=== PATIENT | female | born 1955 | race Caucasian/White ===

== ENCOUNTER 2017-06-02 10:13 | Emergency (ER) | payer OTHER ==
[~2017-06-02] VITALS: Ht 170.2 cm; Wt 120.2 kg
[~2017-06-02 10:13] MED LIST: ALBU0.0912 IH; APID SUBQ; BACL10TA4 PO; CETI-55 PO; LEVEMIR SUBQ; METO100T98 PO; OMEP20TC10 PO; PRAV40TA4 PO
[2017-06-02 10:20] VITALS: BP 184/83
--- NOTE | 2017-06-02 10:29 | NUR ---
PT AMBULATED TO BED 11
--- NOTE | 2017-06-02 10:31 | NUR ---
C/O LEFT NECK/ SHOULDER PAIN S/P MECHANICAL FALL TODAY AT HOME--- HIT HEAD AGAINST DOOR--NO HEMATOMA PALPATED OR LACERATIONS NOTED SUPERFICIAL ABRASION TO RIGHT KNEE DIZZINESS; DENIES KO, AMBULATORY WITH STEADY GAIT, FULL CLEAR SPEECH, NO EMESIS . DENIES V/D; SKIN IS PINK/WARM/DRY; AAOX4 WITH EVEN AND STEADY GAIT; LUNGS CLEAR BL; HR EVEN AND REGULAR; PT DENIES ANY FEVER, CP, SOB, OR COUGH AT THIS TIME; PATIENT STATES PAIN OF 10/10 AT THIS TIME; VSS; PATIENT POSITIONED FOR COMFORT; HOB ELEVATED; BEDRAILS UP X2; BED DOWN. ER MD MADE AWARE OF PT STATUS.
[2017-06-02] MEDS ORDERED: ONDANSETRON 4 MG ODT PO ONE (10:35)
[2017-06-02] MEDS ORDERED: HYDROcodone/APAP 5/325 MG 1 TAB TAB PO ONE (10:35)
--- NOTE | 2017-06-02 10:43 | NUR ---
PT TAKEN TO XRAY
--- NOTE | 2017-06-02 11:17 | NUR ---
PT RETURNED FROM RADIOLOGY
[2017-06-02] MEDS ORDERED: METHOCARBAMOL 500 MG TAB PO ONE (11:50)
[2017-06-02 13:20] VITALS: BP 142/75
--- NOTE | 2017-06-02 13:20 | NUR ---
Patient discharged with v/s stable. Written and verbal after care instructions given and explained. Patient alert, oriented and verbalized understanding of instructions. Ambulatory with steady gait. All questions addressed prior to discharge. ID band removed. Patient advised to follow up with PMD. Rx of ROBAXIN given. Patient educated on indication of medication including possible reaction and side effects. Opportunity to ask questions provided and answered.
== END 2017-06-02 13:20 | disposition home or self-care (01) ==
LOC: MED 10:13
DX: S80.01XA Contusion of right knee, initial encounter (principal); S40.012A Contusion of left shoulder, initial encounter; S09.90XA Unspecified injury of head, initial encounter; M62.838 Other muscle spasm; E11.9 Type 2 diabetes mellitus without complications; I10 Essential (primary) hypertension; Z79.4 Long term (current) use of insulin; Z79.899 Other long term (current) drug therapy; Z88.8 Allergy status to other drugs, medicaments and biological substances; Z90.710 Acquired absence of both cervix and uterus; Z90.49 Acquired absence of other specified parts of digestive tract; Z86.73 Personal history of transient ischemic attack (TIA), and cerebral infarction without residual deficits; W01.0XXA Fall on same level from slipping, tripping and stumbling without subsequent striking against object, initial encounter; Y93.01 Activity, walking, marching and hiking; Y92.89 Other specified places as the place of occurrence of the external cause; Y99.8 Other external cause status
CPT/HCPCS: 70450; 71045; 72125; 73030; 73562; 82948; 99284; S0119

== ENCOUNTER 2017-06-12 23:45 | Emergency (ER) | payer OTHER ==
[~2017-06-12] VITALS: Ht 170.2 cm; Wt 113.4 kg
[2017-06-12 23:54] VITALS: BP 157/94
--- NOTE | 2017-06-13 00:16 | NUR ---
TO LOBBY , AMB, A/W BED, AND XRAY , N[place]LE[facility] NOTED
--- NOTE | 2017-06-13 00:24 | NUR ---
PATIENT AMBULATED TO ER CHAIR A
--- NOTE | 2017-06-13 00:30 | NUR ---
62 Y/O F BIB DAUGHTER W/C/O DRY/NONPRODUCTIVE COUGH, SOB, HEADACHE/BACK PAIN AND NECK PAIN X 2 DAYS. MED HX DM, HTN, HYPERLIPEDEMIA, ARTHRITIS. O2 SAT 97% IN RA, BILATERAL WHEEZES NOTED ON EXPIRATION. ER MD MADE AWARE.
--- NOTE | 2017-06-13 00:42 | NUR ---
VARGAS LINDA AT BEDSIDE.
--- NOTE | 2017-06-13 00:47 | NUR ---
RT CALLED AT BEDSIDE.
[2017-06-13] MEDS ORDERED: ALBUTEROL SULFATE/IPRATROPIU 3 ML SOL IH ONE (00:50)
[2017-06-13] MEDS ORDERED: ACETAMIN/CODEINE 120/12MG-5ML 5 ML UDC PO ONE (00:50)
[2017-06-13] MEDS ORDERED: predniSONE 20 MG TAB PO ONE (00:50)
[2017-06-13] MEDS ORDERED: KETOROLAC 30 MG/ML VIAL IM ONE (01:30)
[2017-06-13 02:05] VITALS: BP 150/68
--- NOTE | 2017-06-13 02:05 | NUR ---
Patient discharged with v/s stable. Written and verbal after care instructions given and explained. Patient alert, oriented and verbalized understanding of instructions. Ambulatory with steady gait. All questions addressed prior to discharge. ID band removed. Patient advised to follow up with PMD. Rx of PREDNISONE, ALBUTEROL, NAPROSYN,GUAIATUSSIN, AND AZITHROMYCIN given. Patient educated on indication of medication including possible reaction and side effects. Opportunity to ask questions provided and answered.
== END 2017-06-13 02:05 | disposition home or self-care (01) ==
LOC: MED 23:45
DX: J20.9 Acute bronchitis, unspecified (principal); E11.9 Type 2 diabetes mellitus without complications; I10 Essential (primary) hypertension; Z79.4 Long term (current) use of insulin; Z79.899 Other long term (current) drug therapy; Z88.8 Allergy status to other drugs, medicaments and biological substances
CPT/HCPCS: 71046; 94640; 96372; 99284; J1885; J7512; J7620

== ENCOUNTER 2017-06-17 16:24 | Inpatient (IN) | payer OTHER ==
[~2017-06-17] VITALS: Ht 170.2 cm; Wt 113.7 kg
[2017-06-17 16:43] VITALS: BP 145/62
--- NOTE | 2017-06-17 16:58 | NUR ---
PATIENT AMBULATED TO BED 4. Addendum: 06/17/17 at 1703 by MEDFN PATIENT AMBULATED TO BED 3.
--- NOTE | 2017-06-17 17:10 | NUR ---
PATIENT PRESENTS TO ED WITH C/O OF SOB X 5 DAYS WITH A NON PRODUCTIVE COUGH, AND PAIN 9/10 IN HER BACK THAT RADIATES FROM MID BACK TO NECK AND HEAD WHEN SHE COUGHS. PT STATES" I HAVE HAD THIS COUGH AND MAKES ME GET OUT OF BREATHE AND I CANT BREATHE . DENIES VOMITING AND DIAHRRHEA BUT SHE DOES COMPLAIN OF NAUSEA. SKIN IS PINK/WARM/MOIST ; AAOX4 WITH EVEN AND STEADY GAIT; LUNGS HAVE WHEEZES IN LOWER BILATERAL LOBES ; PT DOES NOT HAVE FEVER. VSS; PATIENT POSITIONED FOR COMFORT; HOB ELEVATED; BEDRAILS UP X2; BED DOWN. ER MD MADE AWARE OF PT STATUS.
[2017-06-17] MEDS ORDERED: ALBUTEROL SULFATE/IPRATROPIU 3 ML SOL IH ONE (17:15)
[2017-06-17] MEDS ORDERED: NACL 0.9% 500 ML IV ONE ×2 (17:15)
--- NOTE | 2017-06-17 17:30 | NUR ---
RT AT BEDSIDE FOR BREATHING TREATMENT.
--- NOTE | 2017-06-17 17:30 | NUR ---
US AT BEDSIDE
[2017-06-17] MEDS ORDERED: INSULIN REGULAR, HUMAN 100 UNIT/ML VIAL IV ONE ×2 (17:45→18:45)
[2017-06-17 18:23] LABS: BASOPHILS # (AUTO) 0.4 K/uL (0.00-0.22); HEMATOCRIT 38.1 % (36-48); HEMOGLOBIN 12.6 g/dL (12.0-16.0); LYMPHOCYTES # (AUTO) 0.9 K/uL (2.5-16.5); MEAN CORPUSCULAR HEMOGLOBIN 28 pg (27-31); MEAN CORPUSCULAR HGB CONC 33 g/dL (33-37); MEAN CORPUSCULAR VOLUME 83.4 fL (80-94); MONOCYTES # (AUTO) 0.2 K/uL (0.8-1.0); NEUTROPHILS # (AUTO) 7.2 K/uL (1.8-7.7); PLATELET COUNT (AUTO) 264 K/uL (140-450); RED BLOOD CELL COUNT(AUTO) 4.57 MIL/uL (4.20-5.40); RED CELL DISTRIBUTION WIDTH 14.8 % (11.6-13.7); WHITE BLOOD COUNT (AUTO) 8.8 K/uL (4.8-10.8)
[2017-06-17 18:24] LABS: APPEARANCE,URINE CLEAR (CLEAR); BILIRUBIN,URINE NEGATIVE (NEGATIVE); BLOOD, URINE 1+ (NEGATIVE); COLOR,URINE YELLOW (YELLOW); LEUKOCYTE ESTERASE ,URINE NEGATIVE (NEGATIVE); NITRITE, URINE NEGATIVE (NEGATIVE); UGLUCOSE 3+ (NEGATIVE)
[2017-06-17 18:39] LABS: PROTHROMBIN TIME 10.2 secs (10.8-13.4)
[2017-06-17 18:41] LABS: ALBUMIN 2.2 g/dL (3.4-5.0); ANION GAP 18.2 (8-16); CARBON DIOXIDE 22.1 mmol/L (21-32); CREATININE 1.8 mg/dL (0.6-1.3); POTASSIUM 4.3 mmol/L (3.5-5.1); TOTAL BILIRUBIN 0.3 mg/dL (0.0-1.0)
[2017-06-17] MEDS ORDERED: NACL 0.9% 3,000 ML IV ONE (18:45)
--- NOTE | 2017-06-17 19:11 | NUR ---
Pt report given to LUCIUS JONES. Transfer of care at this time.
--- NOTE | 2017-06-17 19:15 | NUR ---
PT RESTING IN BED, AWATING FOR BED ASSIGMENT. NO S/S OF DISTRESS NOTED.
[2017-06-17] MEDS: NACL 0.9% 1,000 ML IV SCH (19:38)
[2017-06-17] MEDS ORDERED: ONDANSETRON 4 MG/2 ML VIAL IVP PRN (19:40)
[2017-06-17] MEDS ORDERED: HYDROcodone/APAP 5/325 MG 1 TAB TAB PO PRN ×2 (19:40)
[2017-06-17] MEDS ORDERED: DEXTROSE 50% 50 ML SYR IVP PRN (19:40)
[2017-06-17] MEDS ORDERED: ACETAMINOPHEN 325 MG TAB PO PRN (19:40)
[2017-06-17] MEDS ORDERED: LORazepam 2 MG/ML VIAL IVP ONE (19:45)
[2017-06-17 19:51] LABS: RBC,URINE 0-5 (RARE) /HPF (0-5)
[2017-06-17 19:52] LABS: YEAST,URINE Moderate /HPF (None Seen)
--- NOTE | 2017-06-17 20:14 | NUR ---
Patient will be admitted to care of DR CASEY. Admited to TELEMETRY. Will go to room 121A. Belongings list completed. Report to LUCIUS HERNANDEZ.
--- NOTE | 2017-06-17 20:35 | NUR ---
ADMITTED PATIENT TO THE TELE UNIT, PATIENT AWAKE ALERT ORIENTED X4, NO S/S OF DISTRESS NOTED, RESPIRATION EVEN AND UNLABORED, ON ROOM AIR, O2SAT 95%. IV PATENT AND INTACT, INFUSING NS AT 100ML/HR. TELE MONITOR PLACED ON PATIENT, PLAN OF CARE DISCUSSED, PATIENT VERBALIZED UNDERSTANDING, CALL LIGHT WITHIN REACH, SAFETY MEASURE ENSURED, WILL CONTINUE TO MONITOR.
[2017-06-17 20:45] VITALS: BP 195/76
--- NOTE | 2017-06-17 20:45 | NUR ---
BP 195/76, HR 100, BLOOD SUGAR 402 AND 414, PATIENT DENIES PAIN OR DISCOMFORT. PAGED DR. MEJIA, DR. CASEY [employer]. WILL CONTINUE TO MONITOR.
[2017-06-17] MEDS: BLOOD GLUCOSE MONITORING 1 DEV DEV FS SCH (21:08)
--- NOTE | 2017-06-17 21:10 | NUR ---
INFORMED DR. CASEY PATIENT BP 195/76, HR 100, BLOOD SUGAR 414. RECEIVED ORDERS OF HYDRALAZINE 10MG IV PUSH Q4H PRN IF SBP ABOVE 160, GIVING LANTUS 20 UNITS SCHEDULED, AND GIVE HUMALOG [address] CASEY THAT PATIENT ALSO WANTED SOMETHING TO HELP HER SLEEPING. RECEIVED ORDER OF BENADRYL 25MG, PO PRN HS FOR INSOMNIA. ORDERS READ BACK, DR. CASEY CONFIRMED.
[2017-06-17] MEDS: INSULIN LANTUS 100 UNITS/ML 10 ML VIAL SUBQ SCH (21:33)
[2017-06-17] MEDS: INSULIN LISPRO SLIDING SCALE 100 UNITS/ML VIAL SUBQ PRN (21:34)
--- NOTE | 2017-06-17 21:50 | NUR ---
CALLED PHARMACIST TO VERIFY THE HYDRALAZINE ORDER.
[2017-06-17] MEDS: hydrALAZINE 20 MG/ML VIAL IVP PRN (22:02)
--- NOTE | 2017-06-17 22:05 | NUR ---
HYDRALAZINE 10MG GIVE ORDERED, PATIENT TOLERATED WELL. NO S/S OF DISTRESS NOTED, RESPIRATION EVEN AND UNLABORED, ON ROOM AIR. WILL CONTINUE TO MONITOR.
[2017-06-17 23:30] VITALS: BP 169/82
--- NOTE | 2017-06-17 23:30 | NUR ---
BP 169/82, HR 105, PATIENT RESTING IN BED, NO S/S OF DISTRESS NOTED, DENIES DISCOMFORT. WILL CONTINUE TO MONITOR.
[2017-06-18] MEDS: IPRATROPIUM 0.02% 0.5 MG/2.5 ML NEBU INH SCH ×4 (01:10→19:25)
[2017-06-18] MEDS: ALBUTEROL 0.083% 2.5 MG/3 ML NEBU INH SCH ×4 (01:10→19:25)
--- NOTE | 2017-06-18 01:33 | NUR ---
PATIENT IS SLEEPING, RESPIRATION EVEN AND UNLABORED, ON ROOM AIR. NO S/S OF DISTRESS NOTED, CALL LIGHT WITHIN REACH ,SAFETY MEASURE ENSURED, WILL CONTINUE TO MONITOR.
[2017-06-18 02:59] LABS: CREATINE KINASE MB 3.3 ng/mL (0-3.6)
--- NOTE | 2017-06-18 03:12 | NUR ---
BP 177/76, HR 102, HYDRALAZINE 10MG GIVEN ORDERED, PATIENT TOLERATED WELL. NO S/S OF DISTRESS NOTED, CALL LIGHT WITHIN REACH, SAFETY MEASURE ENSURED, WILL CONTINUE TO MONITOR.
[2017-06-18] MEDS: hydrALAZINE 20 MG/ML VIAL IVP PRN (03:27)
[2017-06-18 04:23] VITALS: BP 161/57
--- NOTE | 2017-06-18 04:24 | NUR ---
BP 161/57, HR 99. PATIENT WAS SLEEPING, EASY TO AROUSE, NO S/S OF DISTRESS NOTED, RESPIRATION EVEN AND UNLABORED, CALL LIGHT WITHIN REACH, SAFETY MEASURE ENSURED, WILL CONTINUE TO MONITOR.
--- NOTE | 2017-06-18 06:17 | NUR ---
BP 124/70, HR 97, BLOOD SUGAR 252, PATIENT RESTING IN BED, NO S/S OF DISTRESS NOTED, RESPIRATION EVEN AND UNLABORED, WILL CONTINUE TO MONITOR.
[2017-06-18] MEDS: INSULIN LISPRO SLIDING SCALE 100 UNITS/ML VIAL SUBQ PRN ×3 (06:34→17:41)
[2017-06-18] MEDS: BLOOD GLUCOSE MONITORING 1 DEV DEV FS SCH ×4 (06:47→21:43)
--- NOTE | 2017-06-18 07:18 | NUR ---
ENDORSED PLAN OF CARE TO DAY SHIFT RN, PATIENT RESTING IN BED, IN STABLE CONDITION, NO S/S OF DISTRESS NOTED.
[2017-06-18 08:00] VITALS: BP 147/74
--- NOTE | 2017-06-18 08:00 | NUR ---
PATIENT ALERT AND ABLE TO VERBALIZE NEEDS.NO ACUTE DISTRESS NOTED. LUNG SOUNDS CLEAR. BOWEL SOUNDS ACTIVE. PATIENT WITH PSORIATIC RASHES TO BILAT UNDER BREAST. BILAT ABD FOLDS, BILAT ELBOWS. BELOW UMBILICUS , AND MID LOWER BACK.INITIAL ASSESSMENT PERFORMED. VSS. PATIENT VERBALIZED 4/10 PAIN HEALY. WILL MEDICATE. PATIENT WITH IV TO RFA 20G. WITH NS @75/HR. PLAN OF CARE DISCUSSED WITH PATIENT . PATIENT ON CCHO DIET. TOLERATING WELL.AWAITING DR MEJIA FOR F/U. PATIENT VERBALIZED UNDERSTANDING AND AGREEMENT. CALL LIGHT WITHIN REACH. WILL CONT TO MONITOR PT.
[2017-06-18 08:11] LABS: BASOPHILS # (AUTO) 0.1 K/uL (0.00-0.22); EOSINOPHILS # (AUTO) 0.1 K/uL (0-0.4); HEMATOCRIT 35.6 % (36-48); LYMPHOCYTES # (AUTO) 2.3 K/uL (2.5-16.5); MEAN CORPUSCULAR HEMOGLOBIN 28 pg (27-31); MEAN CORPUSCULAR HGB CONC 34 g/dL (33-37); MONOCYTES # (AUTO) 0.5 K/uL (0.8-1.0); NEUTROPHILS # (AUTO) 7.5 K/uL (1.8-7.7); PLATELET COUNT (AUTO) 271 K/uL (140-450); RED BLOOD CELL COUNT(AUTO) 4.29 MIL/uL (4.20-5.40); RED CELL DISTRIBUTION WIDTH 15.7 % (11.6-13.7); WHITE BLOOD COUNT (AUTO) 10.4 K/uL (4.8-10.8)
[2017-06-18 08:17] LABS: BASOPHILS % (AUTO) 0.5 % (0.0-2.0); EOSINOPHILS % (AUTO) 0.5 % (0.0-4.0); LYMPHOCYTES % (AUTO) 21.5 % (20.5-51.1); MONOCYTES % (AUTO) 5.1 % (1.7-9.3); NEUTROPHILS % (AUTO) 72.4 % (42.2-75.2)
[2017-06-18 08:18] LABS: CARBON DIOXIDE 24.1 mmol/L (21-32); CREATININE 1.5 mg/dL (0.6-1.3); POTASSIUM 3.1 mmol/L (3.5-5.1)
[2017-06-18] MEDS ORDERED: METOPROLOL 50 MG TAB PO SCH (09:00)
[2017-06-18] MEDS ORDERED: CETIRIZINE HYDROCHLORIDE PO SCH (09:00)
[2017-06-18] MEDS ORDERED: PRAVASTATIN SODIUM 40 MG PO SCH (09:00)
[2017-06-18] MEDS: ASPIRIN 81 MG TAB.CHEW PO SCH (09:07)
[2017-06-18] MEDS: ENOXAPARIN 40 MG/0.4 ML SYR SUBQ SCH (09:11)
[2017-06-18] MEDS: NACL 0.9% 1,000 ML IV SCH ×2 (09:13→22:23)
--- NOTE | 2017-06-18 10:00 | NUR ---
PATIENT IN BED RESTING WITH EYES CLOSED. NO ACUTE DISTRESS NOTED. RESP EVEN AND UNLABORED. CALL LIGHT WITHIN REACH. WILL CONT TO MONITOR.
[2017-06-18 11:58] LABS: CREATINE KINASE MB 3.5 ng/mL (0-3.6)
[2017-06-18 12:00] VITALS: BP 145/70
--- NOTE | 2017-06-18 12:30 | NUR ---
PATIENT IN BED HAVING LUNCH. ADMINISTERED NORCO ORDERED. TOLERATED WELL. NO ACUTE DISTRESS NOTED. CALL LIGHT WITHIN REACH. WILL CONT TO MONITOR.
--- NOTE | 2017-06-18 12:43 | NUR ---
CM NOTE INITIAL REVIEW FAXED TO [facility] [phone] CANDACE # [phone]
--- NOTE | 2017-06-18 13:55 | NUR ---
WOUND CARE EVALUATION NOTES: REASON FOR EVALUATION:RASHES COMPLETE SKIN ASSESSMENT DONE ON THIS 62 Y/O FEMALE PATIENT TO [facility], WITH INITIAL DIAGNOSIS OF SOB. PAST MEDICAL HISTORY INCLUDE DIABETES, HTN AND OA. ALL ABOVE INFORMATION WAS OBTAINED FROM THE ADMISSION H&P AND PT. PT IS AAX3. LABS ARE WBC 10.4, H/H 12.0/35.6 GLUCOSE 283 AND ALBUMIN 2.2. SKIN WARM TO TOUCH WNL, BLE NO EDEMA, NO HAIR GROWTH AND BILATERAL PEDAL PULSES PRESENT.CHRONIC RASHES TO ELBOWS BEHIND EARS AND LOWER BACK. PT HAS BEEN FOLLOWED PRIMARY PHYSICIAN FOR THE CHRONIC RASHES. PLAN OF CARE DISCUSSED WITH PT AND PRIMARY NURSE. PT ABLE TO VERBALIZE UNDERSTANDING. INTEGUMENTARY: ELBOWS, R/L POSTERIOR EARS AND LOWER BACK CHRONIC RASHES( POSSIBLE PSORIASES) INTERTRIGO TO UNDER BREASTS, LOWER ABDOMEN FOLD AND R/L GROINS RECOMMENDATIONS: -APPLY HYDRAGUARD TO ELBOWS, R/L POSTERIOR EARS AND LOWER BACK CHRONIC RASHES( POSSIBLE PSORIASES) BIDWC -CLEANSE UNDER BREASTS, LOWER ABDOMEN FOLD AND R/L GROINS WITH SOAP AND WATER, APPLY NYSTATIN POWDER BIDWC -PT ABLE TO TURN AND REPOSITION BY HERSELF, PLEASE REMIND PT TO SHIFT WEIGHT Q HOUR -OFFLOAD BILATERAL HEELS BY PLACING PILLOWS UNDER CALVES AT ALL TIMES, UNLESS OTHERWISE CONTRAINDICATED -PRESSURE REDISTRIBUTION SURFACE THERAPY -KEEP SKIN CLEAN AND DRY AT ALL TIMES. RECOMMENDATIONS DISCUSSED WITH PRIMARY RN WILL FOLLOW UP PATIENT Q 7 -10 DAYS AND PRN. PLEASE CONTACT WOUND CARE NURSE FOR ANY CONCERNS AND CHANGES IN WOUND CONDITION
--- NOTE | 2017-06-18 15:00 | NUR ---
DR MEJIA IN TO SEE PATIENT. DISCUSSED PLAN OF CARE WITH PATIENT AT BEDSIDE. FAMILY ALSO AT BEDSIDE. WILL CONT TO MONITOR.
[2017-06-18 16:00] VITALS: BP 146/64
[2017-06-18] MEDS ORDERED: HYDROcodone/APAP 5/325 MG 1 TAB TAB PO PRN (16:30)
[2017-06-18] MEDS ORDERED: LORazepam 2 MG/ML VIAL IVP PRN (16:30)
--- NOTE | 2017-06-18 17:00 | NUR ---
PATIENT RESTING IN BED COMFORTABLY. NO ACUTE DISTRESS NOTED. DENIES PAIN . CALL LIGHT WITHIN REACH. WILL CONT TO MONITOR.
[2017-06-18] MEDS ORDERED: HYDROcodone/APAP 10/325 MG 1 TAB TAB PO PRN (17:10)
--- NOTE | 2017-06-18 19:25 | NUR ---
ENDORSED REPORT AT BEDSIDE TO DIP DYER NURSE FOR CONTINUITY OF CARE. PATIENT STABLE.
--- NOTE | 2017-06-18 19:35 | NUR ---
RECEIVED REPORT FROM DAY SHIFT, PATIENT RESTING IN BED, RESPIRATION EVEN AND UNLABORED, NO S/S OF DISTRESS NOTED, RESPIRATION EVEN AND UNLABORED, IV PATENT AND INTACT, INFUSING NS AT 75ML/HR. PLAN OF CARE DISCUSSED, PATIENT VERBALIZED UNDERSTANDING, CALL LIGHT WITHIN REACH, SAFETY MEASURE ENSURED, WILL CONTINUE TO MONITOR.
[2017-06-18 20:00] VITALS: BP 149/62
[2017-06-18] MEDS ORDERED: SIMVASTATIN 20 MG TAB PO SCH (21:00)
[2017-06-18] MEDS: predniSONE 10 MG TAB PO SCH (21:40)
[2017-06-18] MEDS: INSULIN LANTUS 100 UNITS/ML 10 ML VIAL SUBQ SCH (21:43)
--- NOTE | 2017-06-18 21:55 | NUR ---
DUE MEDICATION GIVEN, PATIENT TOLERATED WELL. NO S/S OF DISTRESS NOTED, RESPIRATION EVEN AND UNLABORED, PAIN MEDICATION GIVEN ORDERED, CALL LIGHT WITHIN REACH, SAFETY MEASURE ENSURED, WILL CONTINUE TO MONITOR.
--- NOTE | 2017-06-18 23:45 | NUR ---
VITAL SIGNS STABLE, NO S/S OF DISTRESS NOTED, RESPIRATION EVEN AND UNLABORED, ON ROOM AIR. CALL LIGHT WITHIN REACH, SAFETY MEASURE ENSURED, WILL CONTINUE TO MONITOR.
[2017-06-19] VITALS: BP 138/84
[2017-06-19] MEDS: ALBUTEROL 0.083% 2.5 MG/3 ML NEBU INH SCH ×4 (01:00→12:42)
[2017-06-19] MEDS: IPRATROPIUM 0.02% 0.5 MG/2.5 ML NEBU INH SCH ×5 (01:00→12:42)
[2017-06-19] MEDS ORDERED: HYDRAGUARD CREAM TP SCH (01:00)
[2017-06-19] MEDS ORDERED: NYSTATIN POW 100 MU/GM 15 GM BTL TP SCH (01:00)
--- NOTE | 2017-06-19 01:19 | NUR ---
SKIN CARE DONE ORDERED, PATIENT TOLERATED WELL. WILL CONTINUE TO MONITOR.
--- NOTE | 2017-06-19 03:25 | NUR ---
PATIENT IS SLEEPING, NO S/S OF DISTRESS NOTED, RESPIRATION EVEN AND UNLABORED, ON ROOM AIR. CALL LIGHT WITHIN REACH, SAFETY MEASURE ENSURED, WILL CONTINUE TO MONITOR.
[2017-06-19 04:00] VITALS: BP 158/71
--- NOTE | 2017-06-19 06:34 | NUR ---
NO CHANGE IN CONDITION, BS 232, 8UNITS OF HUMALOG GIVEN.
[2017-06-19] MEDS: BLOOD GLUCOSE MONITORING 1 DEV DEV FS SCH ×2 (06:42→11:30)
[2017-06-19] MEDS: INSULIN LISPRO SLIDING SCALE 100 UNITS/ML VIAL SUBQ PRN ×2 (06:52→13:20)
[2017-06-19 07:03] LABS: BASOPHILS # (AUTO) 0.1 K/uL (0.00-0.22); BASOPHILS % (AUTO) 0.7 % (0.0-2.0); EOSINOPHILS # (AUTO) 0.2 K/uL (0-0.4); EOSINOPHILS % (AUTO) 1.3 % (0.0-4.0); HEMATOCRIT 35.9 % (36-48); HEMOGLOBIN 12.3 g/dL (12.0-16.0); LYMPHOCYTES # (AUTO) 2.2 K/uL (2.5-16.5); LYMPHOCYTES % (AUTO) 17.7 % (20.5-51.1); MEAN CORPUSCULAR HEMOGLOBIN 28 pg (27-31); MEAN CORPUSCULAR HGB CONC 34 g/dL (33-37); MEAN CORPUSCULAR VOLUME 82.3 fL (80-94); MONOCYTES # (AUTO) 0.5 K/uL (0.8-1.0); MONOCYTES % (AUTO) 4.1 % (1.7-9.3); NEUTROPHILS # (AUTO) 9.2 K/uL (1.8-7.7); NEUTROPHILS % (AUTO) 76.2 % (42.2-75.2); PLATELET COUNT (AUTO) 279 K/uL (140-450); RED BLOOD CELL COUNT(AUTO) 4.36 MIL/uL (4.20-5.40); RED CELL DISTRIBUTION WIDTH 14.8 % (11.6-13.7); WHITE BLOOD COUNT (AUTO) 12.2 K/uL (4.8-10.8)
[2017-06-19 07:25] LABS: CARBON DIOXIDE 22.7 mmol/L (21-32); CREATININE 1.3 mg/dL (0.6-1.3); POTASSIUM 3.7 mmol/L (3.5-5.1)
--- NOTE | 2017-06-19 07:30 | NUR ---
RECEIVED PATIENT REPORT FROM NIGHTSHIFT NURSE AT BEDSIDE. PATIENT IS AWAKE. PATIENT ALERT AND ORIENTED X4. NO COMPLAINTS OF PAIN AT THIS TIME. PATIENT IS ON ROOM AIR AND SHOWS NO SIGNS OF RESPIRATORY DISTRESS OR RESPIRATORY DEPRESSION. PATIENT DOES NOT COMPLAIN OF PAIN AT THIS TIME. PATIENT HAS RASHES ON MULTIPLE PARTS OF BODY. LOWERED BED TO LOWEST SETTING. PATIENT'S IV IS INFUSING NORMAL SALINE AT THIS TIME. WILL CONTINUE TO MONITOR PATIENT.
--- NOTE | 2017-06-19 07:33 | NUR ---
ENDORSED PLAN OF CARE TO DAY SHIFT RN, PATIENT RESTING IN BED, IN STABLE CONDITION, NO S/S OF DISTRESS NOTED.
[2017-06-19 08:00] VITALS: BP 167/68
[2017-06-19] MEDS ORDERED: METOPROLOL 50 MG TAB PO SCH (09:00)
[2017-06-19] MEDS ORDERED: LORATADINE 10 MG TAB PO SCH (09:00)
[2017-06-19] MEDS ORDERED: amLODIPine 5 MG TAB PO SCH (09:00)
--- NOTE | 2017-06-19 09:21 | NUR ---
PATIENT AWAKE AT THIS TIME. NO COMPLAINTS OF PAIN OR RESPIRATORY DISTRESS. WILL CONTINUE TO MONITOR
[2017-06-19] MEDS: ENOXAPARIN 40 MG/0.4 ML SYR SUBQ SCH (09:23)
[2017-06-19] MEDS: ASPIRIN 81 MG TAB.CHEW PO SCH (09:24)
[2017-06-19] MEDS: predniSONE 10 MG TAB PO SCH (09:25)
[2017-06-19] MEDS ORDERED: BENZ-196 PO (10:07)
[2017-06-19] MEDS ORDERED: PRED10TA5 PO (10:09)
--- NOTE | 2017-06-19 10:15 | NUR ---
PATIENT HAS BEEN SCREENED AND CATEGORIZED MODERATE NUTRITION RISK. PATIENT WILL BE SEEN WITHIN 3-5 DAYS OF ADMISSION. 06/20/17 - 06/22/[address]
--- NOTE | 2017-06-19 11:53 | NUR ---
CM NOTE CLINICAL VERBAL REPORT GIVEN TO [facility] AND SHE ALSO REQUESTED COPY OF THE H&P AND THE ORDER TO ARRANGE WITH [facility] FF UP APPOINTMENT WHICH WAS GIVEN TO HER.
[2017-06-19 12:00] VITALS: BP 155/64
--- NOTE | 2017-06-19 13:00 | NUR ---
PATIENT FAMILY AT BEDSIDE. PATIENT IS AWAKE AT THIS TIME. NO COMPLAINTS OF PAIN. NO SIGNS OF RESPIRATORY DISTRESS OR RESPIRATORY DEPRESSION. WILL CONTINUE TO MONITOR PATIENT.
--- NOTE | 2017-06-19 14:15 | NUR ---
PATIENT SIGNED ALL DISCHARGE INSTRUCTIONS AND IS AWARE OF PRESCRIPTIONS. REMOVED IV CATHETER WITH TIP INTACT. REMOVED ID BANDS FROM PATIENT. TOOK PICTURES OF PATIENT'S RASHES. PATIENT UNDERSTOOD ALL DISCHARGE INSTRUCTIONS AND IS AWARE OF HER FOLLOW UP APPOINTMENTS. REMOVED TELE BOX OFF OF PATIENT. PATIENT'S FAMILY IS AT BEDSIDE. PATIENT IN STABLE CONDITION. PATIENT LEFT THE UNIT WITH ALL BELONGINGS VIA WHEELCHAIR.
--- NOTE | 2017-06-20 08:37 | NUR ---
Wound care evaluation not done. Pt discharged.
== END 2017-06-19 14:15 | disposition home or self-care (01) | DRG 469 ==
LOC: MED 16:24 → MTU 19:49
PROVIDERS: ADMIT Internal Medicine; ATTEND Internal Medicine
DX: N17.9 Acute kidney failure, unspecified (principal); E11.00 Type 2 diabetes mellitus with hyperosmolarity without nonketotic hyperglycemic-hyperosmolar coma (NKHHC); E43 Unspecified severe protein-calorie malnutrition; J44.0 Chronic obstructive pulmonary disease with (acute) lower respiratory infection; E11.65 Type 2 diabetes mellitus with hyperglycemia; E66.01 Morbid (severe) obesity due to excess calories; I10 Essential (primary) hypertension; J44.1 Chronic obstructive pulmonary disease with (acute) exacerbation; J20.9 Acute bronchitis, unspecified; Z68.39 Body mass index [BMI] 39.0-39.9, adult; Z88.8 Allergy status to other drugs, medicaments and biological substances; E78.00 Pure hypercholesterolemia, unspecified; Z90.710 Acquired absence of both cervix and uterus; M19.90 Unspecified osteoarthritis, unspecified site; E78.5 Hyperlipidemia, unspecified; Z77.22 Contact with and (suspected) exposure to environmental tobacco smoke (acute) (chronic); R51 Headache
CPT/HCPCS: 36415; 71045; 80048; 80053; 81001; 82009; 82550; 82553; 82948; 83605; 83735; 83880; 84484; 85025; 85610; 85730; 87040; 87081; 87086; 93005; 93971; 94640; 96361; 96374; 99285; J0360; J1650; J1815; J2060; J7030; J7512; J7613; J7620; J7644; Q0092; Q0163

== ENCOUNTER 2017-08-03 15:17 | Emergency (ER) | payer OTHER ==
[~2017-08-03] VITALS: Ht 170.2 cm; Wt 118.4 kg
[~2017-08-03 15:17] MED LIST changes: +BENZ-196 PO; +PRED10TA5 PO
[2017-08-03 15:24] VITALS: BP 189/91
--- NOTE | 2017-08-03 15:24 | NUR ---
PT TAKEN TO BED 2 VIA W/C. PRIMARY NURSE LUCIUS NORIEGA AT BEDSIDE.
--- NOTE | 2017-08-03 15:28 | NUR ---
LLQ PAIN RADIATING TO THE BACK STARTING LAST NIGHT; PT REFERRED HERE FROM URGENT CARE. DENIES N/V/D; SKIN IS PINK/WARM/DRY; AAOX4 WITH EVEN AND STEADY GAIT; LUNGS CLEAR BL;BEDSIDE MONITOR SHOWS ST 104, BP 189/91; PT DENIES ANY FEVER, CP, SOB, OR COUGH AT THIS TIME; PATIENT STATES PAIN OF 10/10 AT THIS TIME; VSS; PATIENT POSITIONED FOR COMFORT; HOB ELEVATED; BEDRAILS UP X2; BED DOWN. ER MD MADE AWARE OF PT STATUS.
--- NOTE | 2017-08-03 15:30 | NUR ---
PT WALKS WITH ASSIST DEVICE.
[2017-08-03] MEDS ORDERED: NACL 0.9% 1,000 ML IV SCH (16:11)
[2017-08-03] MEDS ORDERED: ONDANSETRON 4 MG/2 ML VIAL IVP ONE (16:15)
[2017-08-03] MEDS ORDERED: MORPHINE SULFATE 4 MG/ML SYR IVP ONE ×2 (16:15→18:15)
[2017-08-03 16:53] LABS: APPEARANCE,URINE CLEAR (CLEAR); BILIRUBIN,URINE NEGATIVE (NEGATIVE); BLOOD, URINE TRACE-I (NEGATIVE); COLOR,URINE YELLOW (YELLOW); LEUKOCYTE ESTERASE ,URINE NEGATIVE (NEGATIVE); NITRITE, URINE NEGATIVE (NEGATIVE); UGLUCOSE NEGATIVE (NEGATIVE)
[2017-08-03 16:58] LABS: BASOPHILS % (AUTO) 0.4 % (0.0-2.0); EOSINOPHILS # (AUTO) 0.3 K/uL (0-0.4); EOSINOPHILS % (AUTO) 3.1 % (0.0-4.0); HEMATOCRIT 34.9 % (36-48); HEMOGLOBIN 11.3 g/dL (12.0-16.0); LYMPHOCYTES # (AUTO) 1.8 K/uL (2.5-16.5); LYMPHOCYTES % (AUTO) 21.9 % (20.5-51.1); MEAN CORPUSCULAR HEMOGLOBIN 27 pg (27-31); MEAN CORPUSCULAR HGB CONC 33 g/dL (33-37); MEAN CORPUSCULAR VOLUME 84.1 fL (80-94); MONOCYTES # (AUTO) 0.4 K/uL (0.8-1.0); MONOCYTES % (AUTO) 5.3 % (1.7-9.3); NEUTROPHILS # (AUTO) 5.6 K/uL (1.8-7.7); NEUTROPHILS % (AUTO) 69.3 % (42.2-75.2); PLATELET COUNT (AUTO) 267 K/uL (140-450); RED BLOOD CELL COUNT(AUTO) 4.15 MIL/uL (4.20-5.40); RED CELL DISTRIBUTION WIDTH 16.3 % (11.6-13.7); WHITE BLOOD COUNT (AUTO) 8.1 K/uL (4.8-10.8)
[2017-08-03 16:59] LABS: ANION GAP 11.1 (8-16); CREATININE 1.7 mg/dL (0.6-1.3); POTASSIUM 4.1 mmol/L (3.5-5.1)
[2017-08-03 17:04] LABS: RBC,URINE 0-5 (RARE) /HPF (0-5); WBC,URINE 0-5 (RARE) /HPF (0-5)
[2017-08-03 17:04] LABS: ALBUMIN 2.6 g/dL (3.4-5.0); TOTAL BILIRUBIN 0.5 mg/dL (0.0-1.0)
--- NOTE | 2017-08-03 18:20 | NUR ---
PT C/O PAIN AT THIS MOMENT, BP 179/78. MORPHINE 4 MG GIVEN ORDERED.
[2017-08-03 19:04] VITALS: BP 189/94
--- NOTE | 2017-08-03 19:06 | NUR ---
Patient discharged with v/s stable. Written and verbal after care instructions given and explained. Patient alert, oriented and verbalized understanding of instructions. Ambulatory with steady gait. All questions addressed prior to discharge. ID band removed. Patient advised to follow up with PMD. Rx of ZOFRAN AND NORCO given. Patient educated on indication of medication including possible reaction and side effects. Opportunity to ask questions provided and answered. PT STATED PAIN RELIVED, BP 189/94, HR 102, O2 SAT 94%, RR 21. DR. WAY MADE AWARE OF PT VITALS. PT'S DAUGHTER STATED SHE WILL CALL PRIMARY DOCTOR ON SATURDAY.
== END 2017-08-03 19:06 | disposition home or self-care (01) ==
LOC: MED 15:17
DX: R10.32 Left lower quadrant pain (principal); I12.9 Hypertensive chronic kidney disease with stage 1 through stage 4 chronic kidney disease, or unspecified chronic kidney disease; E11.22 Type 2 diabetes mellitus with diabetic chronic kidney disease; N18.9 Chronic kidney disease, unspecified; Z85.41 Personal history of malignant neoplasm of cervix uteri; Z79.4 Long term (current) use of insulin; Z79.899 Other long term (current) drug therapy; Z88.8 Allergy status to other drugs, medicaments and biological substances
CPT/HCPCS: 36415; 74176; 80053; 81001; 83690; 85025; 96361; 96374; 96375; 96376; 99285; J2270; J2405

== ENCOUNTER 2017-08-14 20:02 | Emergency (ER) | payer OTHER ==
[~2017-08-14] VITALS: Ht 170.2 cm; Wt 118.4 kg
[2017-08-14 20:15] VITALS: BP 164/62
--- NOTE | 2017-08-14 22:22 | NUR ---
PT LWBS AT THIS TIME.
== END 2017-08-14 22:22 | disposition left against medical advice (07) ==
LOC: MED 20:02
DX: M25.572 Pain in left ankle and joints of left foot (principal); Z53.21 Procedure and treatment not carried out due to patient leaving prior to being seen by health care provider

== ENCOUNTER 2017-09-02 18:39 | Emergency (ER) | payer OTHER ==
[~2017-09-02] VITALS: Ht 170.2 cm; Wt 118.4 kg
[2017-09-02 18:40] VITALS: BP 152/88
--- NOTE | 2017-09-02 19:06 | NUR ---
62 YO F BIB DTR W/ C/O LEFT ANKLE FRACTURE R/T A FALL 2 WEEKS AGO. PT REPORTS SHE CAME TO ER THE DAY AFTER THE FALL BUT IT WAS BUSY SO SHE LEFT. [facility] SENT OUT RADIOLOGIST AND NURSE TO HER HOUSE THIS AFTERNOON AND THEY DID AN XRAY WHICH REVEALED A LEFT ANKLE FRACTURE. PT HAS THE CT W/ XRAY RESULTS. NO DEFORMITY NOTED. MINOR SWELLING AND DISCOLORATION NOTED TO THE LEFT PROXIMAL PORTION OF THE ANKLE. PULSES PALPABLED AND STRONG. CAP REFILL LESS THAN 3 SECONDS. PT CAN MOVE THE EXTREMITY BUT REPORTS THE PAIN IS UNBEARABLE. REPORTS SHE GOT A PRESCRIPTION FOR NAPROXEN THIS AFTERNOON FROM THE NURSE THAT CAME W/ XRAY. ER MD NOTIFIED. PT NEEDS MET. SAFETY PRECAUTIONS IN PLACE. WILL CONTINUE TO MONITOR.
[2017-09-02] MEDS ORDERED: KETOROLAC 30 MG/ML VIAL IM ONE (19:55)
[2017-09-02] MEDS ORDERED: HYDROcodone/APAP 5/325 MG 1 TAB TAB PO ONE (19:55)
--- NOTE | 2017-09-02 20:08 | NUR ---
Pt resting comfortably in [facility] at this time. VSS. Will continue to monitor.
[2017-09-02 21:23] VITALS: BP 153/78
--- NOTE | 2017-09-02 21:24 | NUR ---
Patient discharged with v/s stable. Written and verbal after care instructions given and explained. Patient alert, oriented and verbalized understanding of instructions. Wheel Chair Assisted with to car. All questions addressed prior to discharge. ID band removed. Patient advised to follow up with PMD. Rx of Tylenol with Codeine and Naprosyn given. Patient educated on indication of medication including possible reaction and side effects. Opportunity to ask questions provided and answered.
== END 2017-09-02 21:24 | disposition home or self-care (01) ==
LOC: MED 18:39
DX: S82.832A Other fracture of upper and lower end of left fibula, initial encounter for closed fracture (principal); E11.9 Type 2 diabetes mellitus without complications; I10 Essential (primary) hypertension; Z85.41 Personal history of malignant neoplasm of cervix uteri; Z90.710 Acquired absence of both cervix and uterus; Z90.49 Acquired absence of other specified parts of digestive tract; Z79.899 Other long term (current) drug therapy; Z88.8 Allergy status to other drugs, medicaments and biological substances; W01.0XXA Fall on same level from slipping, tripping and stumbling without subsequent striking against object, initial encounter; Y93.89 Activity, other specified; Y92.098 Other place in other non-institutional residence as the place of occurrence of the external cause; Y99.8 Other external cause status
CPT/HCPCS: 29515; 73610; 96372; 99284; J1885; Q0092

== ENCOUNTER 2017-11-19 20:04 | Inpatient (IN) | payer OTHER ==
[~2017-11-19] VITALS: Ht 172.7 cm; Wt 117.9 kg
[2017-11-19 20:08] VITALS: BP 166/73
--- NOTE | 2017-11-19 20:12 | NUR ---
TO BED # 12 VIA WHEELCHAIR, REPORT GIVEN TO KEVAN KAN
--- NOTE | 2017-11-19 20:18 | NUR ---
PATIENT PRESENTS TO ED WITH DIFF OF BREATHING SINCE YESTERDAY AND KEEP IN WORSENING, HEADACHE , BACK PAIN PT DENIES N/V/D; SKIN IS PINK/WARM/DRY; AAOX4 WITH EVEN AND STEADY GAIT; HR EVEN AND REGULAR; PATIENT STATES PAIN OF 9/10 AT THIS TIME; PATIENT POSITIONED FOR COMFORT; HOB ELEVATED; BEDRAILS UP X2; BED DOWN.
--- NOTE | 2017-11-19 20:18 | NUR ---
PT TAKEN TO ED BED 12
--- NOTE | 2017-11-19 22:26 | NUR ---
EKG PERFORMED AT BEDSIDE, COVERED IN GOWN AND BLANKET. FAMILY MEMBER BY BEDSIDE. NORMAL SINUS RHYTHM
[2017-11-19] MEDS ORDERED: ALBUTEROL 0.083% 2.5 MG/3 ML NEBU INH ONE (22:35)
[2017-11-19] MEDS ORDERED: methylPREDNISolone SS 125 MG/2 ML VIAL IVP ONE (22:35)
[2017-11-19] MEDS ORDERED: MAGNESIUM SULFATE 50% 1,000 MG in NACL 0.9% 50 ML IV ONE (22:35)
[2017-11-19] MEDS ORDERED: IPRATROPIUM 0.02% 0.5 MG/2.5 ML NEBU INH ONE (22:35)
[2017-11-19] MEDS ORDERED: MAGNESIUM SULFATE 50% 1000 MG/2 ML VIAL IV ONE (22:46)
[2017-11-19 22:51] LABS: APPEARANCE,URINE SL CLOUDY (CLEAR); BILIRUBIN,URINE NEGATIVE (NEGATIVE); BLOOD, URINE NEGATIVE (NEGATIVE); COLOR,URINE YELLOW (YELLOW); LEUKOCYTE ESTERASE ,URINE NEGATIVE (NEGATIVE); NITRITE, URINE NEGATIVE (NEGATIVE); PH,URINE 6.5 (5.0-9.0); UGLUCOSE 1+ (NEGATIVE)
[2017-11-19 22:58] LABS: HEMATOCRIT 31.5 % (36-48); HEMOGLOBIN 10.2 g/dL (12.0-16.0); MEAN CORPUSCULAR HEMOGLOBIN 27 pg (27-31); MEAN CORPUSCULAR HGB CONC 33 g/dL (33-37); MEAN CORPUSCULAR VOLUME 83.4 fL (80-94); PLATELET COUNT (AUTO) 415 K/uL (140-450); RED BLOOD CELL COUNT(AUTO) 3.78 MIL/uL (4.20-5.40); RED CELL DISTRIBUTION WIDTH 15.8 % (11.6-13.7); WHITE BLOOD COUNT (AUTO) 11.7 K/uL (4.8-10.8)
[2017-11-19 23:02] LABS: ANION GAP 10.3 (8-16); CARBON DIOXIDE 27.3 mmol/L (21-32); POTASSIUM 4.6 mmol/L (3.5-5.1)
[2017-11-19 23:04] LABS: EOSINOPHILS % (MANUAL) 2 % (0-4); LYMPHOCYTES % (MANUAL) 8 % (20-46); MONOCYTES % (MANUAL) 2 % (5-12)
[2017-11-19 23:08] LABS: ALBUMIN 2.2 g/dL (3.4-5.0); TOTAL BILIRUBIN 0.6 mg/dL (0.0-1.0)
[2017-11-19 23:16] LABS: RBC,URINE 0-5 (RARE) /HPF (0-5)
[2017-11-19 23:17] LABS: HYALINE CASTS, URINE 0-10 /LPF (None Seen)
--- NOTE | 2017-11-20 00:06 | NUR ---
PT STATES SHE FEELS BETTER AFTER BREATHING TREATMENT. NO ACUTE DISTRESS NOTED.
[2017-11-20] MEDS ORDERED: PIPERACILLIN/TAZOBACTAM 3.375 GM in DEXTROSE 5% 50 ML IV ONE (00:25)
[2017-11-20] MEDS ORDERED: AMLO10TA PO (00:42)
[2017-11-20] MEDS ORDERED: TRI48 PO (00:42)
[2017-11-20] MEDS ORDERED: [UNRECOGNIZED DRUG - CODE] IJ (00:42)
[2017-11-20] MEDS ORDERED: QUET25TA PO (00:42)
[2017-11-20] MEDS ORDERED: ALPR0.5T2 PO (00:42)
[2017-11-20] MEDS ORDERED: FLUO10CA21 PO (00:42)
[2017-11-20] MEDS ORDERED: INSU100S53 SC (00:42)
[2017-11-20] MEDS ORDERED: ASPI81CT89 PO (00:42)
[2017-11-20] MEDS ORDERED: METH500T14 PO (00:42)
[2017-11-20] MEDS ORDERED: PIPERACILLIN/TAZOBACTAM 3.375 GM VIAL IV ONE (00:48)
[2017-11-20] MEDS ORDERED: MORPHINE SULFATE 2 MG/ML SYR IVP PRN (01:10)
[2017-11-20] MEDS ORDERED: DEXTROSE 50% 50 ML SYR IVP PRN (01:10)
[2017-11-20] MEDS ORDERED: BENZONATATE 100 MG CAPLF PO PRN (01:10)
[2017-11-20] MEDS ORDERED: ONDANSETRON 4 MG/2 ML VIAL IVP PRN (01:10)
[2017-11-20] MEDS ORDERED: ACETAMINOPHEN 325 MG TAB PO PRN (01:10)
[2017-11-20] MEDS ORDERED: HYDROcodone/APAP 5/325 MG 1 TAB TAB PO PRN (01:10)
[2017-11-20] MEDS ORDERED: ALBUTEROL 0.083% 2.5 MG/3 ML NEBU INH PRN (01:10)
--- NOTE | 2017-11-20 01:40 | NUR ---
PT ARRIVED AT UNIT VIA WHEELCHAIR, PT WALKED TO THE RESTROOM AND THEN WALKED TO BED, NO DISTRESS NOTED, PT STATED FEELING ANXIOUS, REPORT RECEIVED FROM ER NURSE, IV TO R AC 20 G PATENT, INTACT, SL, PT ON ROOM AIR AT THIS MOMENT, NO SOB, ACCESSORY MUSCLE USAGE DURING BREATHING NOTED, PT SAT 92% ON ROOM AIR, PT STATED PAIN AT 9/10 ON THE BACK, HEAD AND UPPER STOMACH AREA, INITIAL ASSESSMENT DONE, ALL SAFETY PRECAUTION MET, MRSA SWAB TAKEN. PT RESTING, NO DISTRESS NOTED, CALL LIGHT WITHIN REACH, WILL CONTINUE TO MONITOR.
--- NOTE | 2017-11-20 01:48 | NUR ---
Patient will be admitted to care of DR ACUÑA. Admited to M/S. Will go to room 105B. Belongings list completed. Report to LUCIUS JUDD.
[2017-11-20 01:53] LABS: CREATINE KINASE MB 2.5 ng/mL (0-3.6)
[2017-11-20 02:00] VITALS: BP 180/87
[2017-11-20] MEDS ORDERED: cefTRIAXone 1,000 MG VIAL ONE (02:35)
[2017-11-20] MEDS: LORazepam 2 MG/ML VIAL IVP PRN ×2 (02:37→16:08)
--- NOTE | 2017-11-20 02:37 | NUR ---
ANXIETY MEDICATION GIVEN, PAIN MEDICATION GIVEN, DUE MEDICATION PER MD ORDER GIVEN, PT TOLERATED WELL, NO DISTRESS NOTED, CALL LIGHT WITHIN REACH, WILL CONTINUE TO MONITOR.
[2017-11-20] MEDS: AZITHROMYCIN 500 MG in DEXTROSE 5% 250 ML IV SCH (02:55)
[2017-11-20] MEDS ORDERED: AZITHROMYCIN 500 MG INJ VIAL IV ONE (02:58)
--- NOTE | 2017-11-20 03:15 | NUR ---
TALKED TO DR. SCOTT REGARDING PT BP STILL HIGH, 172/58 HR 105, PT DENIES ANY PAIN AT THIS MOMENT, STATED TO ORDER LABETALOL 100MG BID PO, AND ONCE FOR RIGHT NOW. WILL MEDICATE PT WHEN ORDERS ARE IN.
--- NOTE | 2017-11-20 03:37 | NUR ---
LABETALOL PER MD ORDER ADMINISTERED, PT TOLERATED WELL, PT SLEEPING, NO DISTRESS NOTED, WILL CONTINUE TO MONITOR.
[2017-11-20] MEDS ORDERED: LABETALOL 100 MG TAB PO SCH (03:45)
[2017-11-20] MEDS ORDERED: methylPREDNISolone SS 40 MG/ML VIAL IVP SCH (05:00)
[2017-11-20] MEDS ORDERED: INSULIN LISPRO 100 UNITS/ML VIAL SUBQ ONE ×2 (05:45→06:00)
--- NOTE | 2017-11-20 05:47 | NUR ---
CHECKED PT BLOOD SUGAR, 564, CALLED DR. TYLER DR. STATED TO GIVE HUMALOG 18 UNITS, WILL PUT IN ORDERS AND CONTINUE WITH ORDERS.
[2017-11-20] MEDS: BLOOD GLUCOSE MONITORING 1 DEV DEV FS SCH ×4 (05:49→21:10)
[2017-11-20] MEDS: INSULIN LISPRO SLIDING SCALE 100 UNITS/ML VIAL SUBQ PRN ×4 (07:03→21:16)
--- NOTE | 2017-11-20 07:03 | NUR ---
RECHECKED PT BLOOD SUGAR MORE THAN 600, NOTIFIED DR. SCOTT, STATED UNDERSTANDING. TO GIVE 14 UNITS INSULIN. PT TOLERATED WELL, NO DISTRESS NOTED, CALL LIGHT WITHIN REACH, WILL CONTINUE TO MONITOR.
--- NOTE | 2017-11-20 07:30 | NUR ---
RECEIVED REPORT FROM NIGHTSHIFT NURSE AT BEDSIDE. PATIENT IS ASLEEP AT THIS TIME. PATIENT AROUSABLE TO NAME. PATIENT HAS AN IV NOTED ON HER RIGHT AC SL. PATIENT HAS PSORIASIS RASH ON HER BACK AND ELBOWS. PATIENT HAS REDNESS NOTED UNDER ABDOMINAL FOLDS AND BREAST. PATIENT ON 2L OXYGEN VIA NC. NO DISTRESS NOTED AT THIS TIME. NO PAIN NOTED. BED LOWERED TO LOWEST SETTING. CALL LIGHT WITHIN REACH OF PATIENT. WILL CONTINUE TO MONITOR PATIENT.
--- NOTE | 2017-11-20 07:30 | NUR ---
ENDORSED PT TO DAY SHIFT NURSE CONRADO KAN, PT STABLE, NO DISTRESS NOTED, CALL LIGHT WITHIN REACH, WILL CONTINUE TO MONITOR.
[2017-11-20 08:00] VITALS: BP 161/72
[2017-11-20] MEDS: ASPIRIN 81 MG TAB.CHEW PO SCH (08:43)
[2017-11-20] MEDS: METHOCARBAMOL 500 MG TAB PO SCH ×2 (08:44→21:03)
[2017-11-20] MEDS: FLUoxetine 10 MG CAP PO SCH (08:44)
[2017-11-20] MEDS: LORATADINE 10 MG TAB PO SCH (08:44)
[2017-11-20] MEDS: FENOFIBRATE 48 MG TAB PO SCH (08:44)
[2017-11-20] MEDS: ALPRAZolam 0.5 MG TAB PO SCH ×2 (08:45→21:02)
[2017-11-20] MEDS: LABETALOL 100 MG TAB PO SCH ×2 (08:45→21:02)
[2017-11-20] MEDS: amLODIPine 5 MG TAB PO SCH (08:46)
[2017-11-20] MEDS: ENOXAPARIN 30 MG/0.3 ML SYR SUBQ SCH (08:56)
[2017-11-20] MEDS ORDERED: METOPROLOL 50 MG TAB PO SCH (09:00)
[2017-11-20] MEDS ORDERED: SIMVASTATIN 20 MG TAB PO SCH (09:00)
[2017-11-20] MEDS ORDERED: ENOXAPARIN 40 MG/0.4 ML SYR SUBQ SCH (09:00)
--- NOTE | 2017-11-20 09:06 | NUR ---
PAGED DR. ACUÑA REGARDING PATIENT'S INSULIN DOSAGES TAKEN AT HOME.
--- NOTE | 2017-11-20 09:07 | NUR ---
PATIENT HAS BEEN SCREENED AND CATEGORIZED HIGH NUTRITION RISK. PATIENT WILL BE SEEN WITHIN 1-2 DAYS OF ADMISSION. 11/20/17 11/21/[address]
[2017-11-20] MEDS ORDERED: INSULIN LANTUS 100 UNITS/ML 10 ML VIAL SUBQ SCH (09:19)
--- NOTE | 2017-11-20 09:20 | NUR ---
SPOKE TO DR. ACUÑA. ORDERED 50 UNITS OF LANTUS FOR PATIENT. INFORMED THAT PATIENT RECEIVES LEVEMIR 100 U AT NIGHT. LEVEMIR OUT OF STOCK.
--- NOTE | 2017-11-20 09:57 | NUR ---
PATIENT COMPLAINS OF NAUSEA. ADMINISTERED ZOFRAN IV TO PATIENT. WILL CONTINUE TO MONITOR PATIENT.
--- NOTE | 2017-11-20 10:00 | NUR ---
WOUND CARE EVALUATION NOTE: REASON FOR EVALUATION: PSORIASIS SKIN ASSESSMENT DONE WITH THIS 62 Y/O FEMALE PT ADMITTED FROM HOME TO [facility] WITH INITIAL DX SOB. PAST MEDICAL HX INCLUDES HTN, DM, ASTHMA, ANXIETY, DEPRESSION AND CHRONIC PSORIASIS. ALL ABOVE INFORMATION OBTAINED FROM ADMISSION H&P. AND PT. PT IS AAX4. PT. HAS MILD SOB WITH C/O NAUSEA DURING ASSESSMENT. PRIMARY RN NOTIFY. LABS ARE WBC 11.7, H/H 10.2/31.5, GLUCOSE 252 AND ALBUMIN 2.2. PT IS AWAKE. SKIN IS WARM AND MOIST, BLE FEW HAIR GROWTH, NO EDEMA. DORSAL PEDAL PULSES PRESENT AND NORMAL. CAPILLARY REFILLED < 2 SEC. X 10 TOES.CONTINENT OF BOWEL AND BLADDER. PLAN OF CARE DISCUSSED WITH PRIMARY RN AND PT. PT. VERBALIZES UNDERSTAND INTEGUMENTARY: -INTERTRIGO TO BILATERAL BREAST FOLDS, ABDOMINAL FOLDS AND R/L GROINS -ABDOMEN DISTENDED, TENDER TO TOUCH. -PSORIASIS TO MILD BACK, R/L ELBOWS, SKIN DRY INTACT WITH MULTIPLES RASHES RECOMMENDATIONS: -CLEANSE BILATERAL BREAST FOLDS, ABDOMINAL FOLDS AND R/L GROINS WITH MILD SOAP AND WATER, PAT DRY, APPLY INTER DRY CLOTH WEEKLY CHANGE PRN IF SOILING -APPLY HYDRAGUARD TO MILD BACK, R/L ELBOWS MULTIPLES RASHES BIDWC AND MEDICAL TECHNOLOGIST CHIEF -OFFLOAD BILATERAL HEELS BY PLACING PILLOWS UNDER CALVES UNLESS OTHERWISE CONTRAINDICATED -TURN AND REPOSITION Q2H ALL ABOVE RECOMMENDATIONS DISCUSSED WITH PRIMARY RN. WILL FOLLOW UP PT Q7-10 DAYS. PLEASE CONTACT WOUND CARE NURSE FOR ANY QUESTION AND CHANGE OF WOUND CONDITION.
--- NOTE | 2017-11-20 10:15 | NUR ---
PATIENT BLOOD SUGAR IS 450. WILL CONTINUE TO MONITOR PATIENT.
[2017-11-20] MEDS ORDERED: INTERDRY CLOTH TP SCH (11:00)
[2017-11-20] MEDS ORDERED: INSULIN LISPRO 100 UNITS/ML VIAL SUBQ SCH (11:30)
[2017-11-20] MEDS: HYDRAGUARD CREAM TP SCH (13:00)
--- NOTE | 2017-11-20 14:49 | NUR ---
CM NOTE ADMISSION CHART REVIEW DONE. INITIAL REVIEW FAXED TO [facility] [phone] CANDACE # [phone]
--- NOTE | 2017-11-20 15:03 | NUR ---
11/20/17 RD INITIAL ASSESSMENT COMPLETED PLEASE REFER TO NUTRITION ASSESSMENT UNDER CARE ACTIVITY FOR ESTIMATED NUTRITIONAL NEEDS. 1. CONTINUE CCHO 60 DIET TOLERATED. 2. RECOMMEND NA 2 GM DIET TOLERATED. 3. RECOMMEND GLUCERNA BID IF PO INTAKE <50%. 3. RD TO FOLLOW-UP 3-5 DAYS,MODERATE RISK. FERNANDO TRINIDAD, RD
[2017-11-20 16:00] VITALS: BP 138/67
[2017-11-20] MEDS: NACL 0.45% 1,000 ML IV SCH (16:00)
--- NOTE | 2017-11-20 16:01 | NUR ---
APPLIED INTERDRY CLOTH TO PATIENT'S ABDOMINAL FOLDS AND UNDER BREASTS. APPLIED HYDRAGARD. PATIENT TOLERATED WELL.
--- NOTE | 2017-11-20 16:08 | NUR ---
PATIENT IS ANXIOUS AT THIS TIME. PATIENT STATES, "IM HAVING ANXIETY". VITAL SIGNS STABLE AT THIS TIME. ADMINISTERED ATIVAN 2 MG.
--- NOTE | 2017-11-20 19:27 | NUR ---
GAVE REPORT TO NIGHTSHIFT NURSE AT BEDSIDE. PATIENT IN STABLE CONDITION.
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
[2017-11-20] MEDS ORDERED: QUEtiapine FUMARATE 100 MG TAB PO SCH (21:00)
[2017-11-20] MEDS: SIMVASTATIN 20 MG TAB PO SCH (21:00)
[2017-11-20] MEDS: METOPROLOL 50 MG TAB PO SCH (21:01)
[2017-11-20] MEDS: BACLOFEN 10 MG TAB PO SCH (21:02)
--- NOTE | 2017-11-20 21:05 | NUR ---
DUE PO MEDICATIONS GIVEN, TOLERATED WELL.
--- NOTE | 2017-11-20 22:30 | NUR ---
ASSISTED TO BS, UNSTEADY WHILE STANDING. ASSISTED BACK TO BED BY TWO PERSONS. SAFETY MAINTAINED.
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
[2017-11-21] VITALS: BP 116/80
--- NOTE | 2017-11-21 00:30 | NUR ---
STILL SHOUTING, REORIENTED TO HOSPITAL SETTING. DOES NOT LISTENED. TRANSFER TO 107 A FOR CLOSE MONITORING.
[2017-11-21] MEDS: LORazepam 2 MG/ML VIAL IVP PRN (01:11)
--- NOTE | 2017-11-21 01:11 | NUR ---
DOES NOT LISTENED TO NURSES, RISK OF FALLING, TRYING TO GET OUT OF BED. SHOUTING, VERY AGITATED. MEDICATED WITH ATIVAN 2 MG. ORDERED BY CHARGE NURSE KAROLINA.
[2017-11-21] MEDS: HYDRAGUARD CREAM TP SCH ×2 (01:32→13:44)
--- NOTE | 2017-11-21 01:41 | NUR ---
STILL VERY AGITATED, SHOUTING. TRYING TO GET OUT OF BED, WON'T LISTEN, UNCOOPERATIVE.
[2017-11-21 02:03] LABS: CREATINE KINASE MB 1.9 ng/mL (0-3.6)
--- NOTE | 2017-11-21 02:15 | NUR ---
MEGAN RN SPOKE WITH FAMILY REGARDING PATIENT AGITATION, DAUGHTER RIC SPOKE WITH PATIENT. SOMEBODY WILL COME TO SEE PATIENT.
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
[2017-11-21] MEDS: AZITHROMYCIN 500 MG in DEXTROSE 5% 250 ML IV SCH (02:30)
[2017-11-21] MEDS ORDERED: HALOPERIDOL IM 5 MG/ML VIAL IM ONE (02:30)
--- NOTE | 2017-11-21 02:30 | NUR ---
PULLED OUT IV, STILL WITH AGITATION. CHARGE NURSE KAROLINA PUT NEW IV LINE AT THE RIGHT FOREARM G24.
--- NOTE | 2017-11-21 02:35 | NUR ---
CAME AND TRY TO CALM PATIENT. STILL SHOUTS. REORIENTED TO HOSPITAL SETTING.
--- NOTE | 2017-11-21 03:30 | NUR ---
VERY COMBATIVE, CONTACT FAMILY. WHEN DAUGHTER SPEAK WITH PATIENT, THROW THE PHONE. HITS NURSES, PUSH AWAY CHARGE NURSE. SECURITY CAME AND STILL CONTINUED HITTING. DOES NOT LISTEN TO ANY ADVISED OR EXPLANATION.
--- NOTE | 2017-11-21 03:47 | NUR ---
MEDICATED WITH HALDOL IM ORDERED BY CHARGE NURSE KAROLINA.
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
--- NOTE | 2017-11-21 04:15 | NUR ---
STILL WITH AGITATION BUT STARTING TO BE DROWSY.
--- NOTE | 2017-11-21 04:20 | NUR ---
LAYING IN BED SLEEPING, AND DAUGHTER CAME, OPENS EYES AND DID NOT SPEAK, JUST WENT BACK TO SLEEP.
--- NOTE | 2017-11-21 04:36 | NUR ---
IN BED, BP CHECKED - 119/63, HR - 74, 02 SAT - 94 ON 02 AT 2 LITERS N/C. AT THE BEDSIDE, NO AGITATION NOTED.
--- NOTE | 2017-11-21 04:50 | NUR ---
STILL SLEEPING IN BED, PATIENT LOOKS PALE. BS CHECKED BY CHARGE NURSE KAROLINA, RESULT 325. VS CHECKED BY VARGAS JOHNSON, STABLE. WILL CHECKED AGAIN BS AT 0600.
--- NOTE | 2017-11-21 05:45 | NUR ---
INFORMED DR. MEJIA, PATIENT HAS NO MORE AGITATION BUT ALTERED, LETHARGIC, ER CHARGE NURSE STATED PATIENT PERSONALITY HAS CHANGED A LOT SINCE YESTERDAY. 02 SAT - 93 TO 95% ON 2 LITERS N/C. RT GAVE BREATHING TREATMENT, SUGGESTED PATIENT TO BE ON BIPAP. INQUIRED IF HE WANTS TO ORDER TRANSFER TO ICU OR BIPAP. ORDERED TO DO STAT ABGS FIRST.
--- NOTE | 2017-11-21 06:00 | NUR ---
PATIENT RESPONDED TO QUESTION ACCURATELY ALTHOUGH VERY DROWSY. 02 SAT - 97% ON 2 LITERS N/C.
[2017-11-21] MEDS ORDERED: PANTOPRAZOLE 40 MG TABEC PO SCH (06:30)
[2017-11-21 06:40] LABS: ANION GAP 12.1 (8-16); CARBON DIOXIDE 24.3 mmol/L (21-32); CREATININE 2.7 mg/dL (0.6-1.3); POTASSIUM 4.4 mmol/L (3.5-5.1)
[2017-11-21] MEDS: BLOOD GLUCOSE MONITORING 1 DEV DEV FS SCH ×4 (06:49→21:18)
[2017-11-21] MEDS: INSULIN LISPRO SLIDING SCALE 100 UNITS/ML VIAL SUBQ PRN ×2 (06:50→21:41)
[2017-11-21 06:58] LABS: BASOPHILS # (AUTO) 0.1 K/uL (0.00-0.22); BASOPHILS % (AUTO) 0.3 % (0.0-2.0); EOSINOPHILS % (AUTO) 0.2 % (0.0-4.0); LYMPHOCYTES # (AUTO) 2.2 K/uL (2.5-16.5); LYMPHOCYTES % (AUTO) 12.3 % (20.5-51.1); MEAN CORPUSCULAR HEMOGLOBIN 27 pg (27-31); MEAN CORPUSCULAR HGB CONC 32 g/dL (33-37); MEAN CORPUSCULAR VOLUME 84.4 fL (80-94); MONOCYTES # (AUTO) 0.9 K/uL (0.8-1.0); MONOCYTES % (AUTO) 4.9 % (1.7-9.3); NEUTROPHILS # (AUTO) 14.9 K/uL (1.8-7.7); NEUTROPHILS % (AUTO) 82.3 % (42.2-75.2); PLATELET COUNT (AUTO) 380 K/uL (140-450); RED BLOOD CELL COUNT(AUTO) 2.96 MIL/uL (4.20-5.40); RED CELL DISTRIBUTION WIDTH 15.9 % (11.6-13.7); WHITE BLOOD COUNT (AUTO) 18.1 K/uL (4.8-10.8)
--- NOTE | 2017-11-21 07:30 | NUR ---
PATIENT WAS SLEEPING COMFORTABLY. RESPIRATION EVEN, UNLABOR ON 2 L NC. SKIN DRY AND WARM ON THE TOUCH. IV PATENT AND INTACT. PLAN OF CARE WAS DISCUSSED WITH PATIENT. PATIENT WAS UNABLE COMPREHEND. BED AT LOW POSITION, SIDE RAILS UP. CALL LIGHT WITHIN REACH. BED ALARM ACTIVE.
--- NOTE | 2017-11-21 07:50 | NUR ---
PATIENT WAS AGITATED, REMOVED GOWN, AND IV, CATHETER INTACT, NO ACTIVE BLEEDING SEEN. PATIENT WAS REORIENTED TO ROOM AND STAFF. PATIENT WAS REPOSITIONED, PERINEAL CARE WAS GIVEN. WILL CONTINUE TO MONITOR
[2017-11-21 08:00] VITALS: BP 134/60
[2017-11-21] MEDS ORDERED: BENZONATATE 100 MG CAPLF PO PRN (08:05)
[2017-11-21] MEDS: ENOXAPARIN 30 MG/0.3 ML SYR SUBQ SCH (08:56)
[2017-11-21] MEDS: INSULIN LANTUS 100 UNITS/ML 10 ML VIAL SUBQ SCH (08:57)
[2017-11-21] MEDS: ALPRAZolam 0.5 MG TAB PO SCH ×2 (09:00→21:37)
[2017-11-21] MEDS: LABETALOL 100 MG TAB PO SCH ×2 (09:00→21:37)
[2017-11-21] MEDS: amLODIPine 5 MG TAB PO SCH (09:00)
[2017-11-21] MEDS: FLUoxetine 10 MG CAP PO SCH (09:00)
[2017-11-21] MEDS: METHOCARBAMOL 500 MG TAB PO SCH ×2 (09:00→21:38)
[2017-11-21] MEDS: ASPIRIN 81 MG TAB.CHEW PO SCH (09:00)
[2017-11-21] MEDS: FENOFIBRATE 48 MG TAB PO SCH (09:00)
[2017-11-21] MEDS ORDERED: amLODIPine 5 MG TAB PO SCH (09:00)
[2017-11-21] MEDS: METOPROLOL 50 MG TAB PO SCH ×2 (09:00→21:36)
[2017-11-21] MEDS: LORATADINE 10 MG TAB PO SCH (09:00)
--- NOTE | 2017-11-21 09:15 | NUR ---
PATIENT WAS DROWSY, MINIMAL RESPONSE TO NAME AND SHAKING. RESPIRATION EVEN, UNLABOR ON 2L NC. VS IS STABLE. PO MEDS WERE HELD.
[2017-11-21] MEDS: methylPREDNISolone SS 40 MG/ML VIAL IVP SCH (10:13)
--- NOTE | 2017-11-21 11:48 | NUR ---
PATIENT IS SLEEPING COMFORTABLY. RESPIRATION EVEN, UNLABOR ON 2L NC. NO DISTRESS NOTED AT THIS TIME. US TECH WAS AT BEDSIDE. CALL LIGHT WITHIN REACH
[2017-11-21] MEDS: NACL 0.45% 1,000 ML IV SCH (11:53)
--- NOTE | 2017-11-21 12:30 | NUR ---
PATIENT WAS DROWSY, MINIMAL RESPONSE TO NAME AND TOUCH, UNABLE EAT LUNCH. INSULIN WAS HELD AT THIS TIME.
[2017-11-21] MEDS ORDERED: HALOPERIDOL IM 5 MG/ML VIAL IM PRN (12:35)
--- NOTE | 2017-11-21 12:41 | NUR ---
GOT CALL FROM RN THAT DR ACUÑA IS REQUESTING TO GIVE PT BREATHING TX. THERE IS NO ORDERS IN [facility]. TALKED TO DR ACUÑA ABOUT ORDER. DR ACUÑA AWARE. WILL FOLLOW ONCE ORDER IS IN. PT IS ASLEEP COMFORTABLY. NO DISTRESS NOTED.
--- NOTE | 2017-11-21 13:30 | NUR ---
P.T. NOTES ATTEMPTED P.T. EVAL, CHART REVIEWED, PATIENT CONTINUES TO LETHARGIC, DIFFICULT TO ROUSE TO VERBAL ANC TACTILE CUES. PATIENT NOT APPROPRIATE FOR P.T. EVAL AT THIS TIME RN MADE AWARE AND IN AGREEMENT. WILL ATTEMPT TOMORROW.
[2017-11-21] MEDS: ALBUTEROL 0.083% 2.5 MG/3 ML NEBU INH SCH ×2 (13:36→19:54)
--- NOTE | 2017-11-21 14:23 | NUR ---
PATIENT IS SLEEPING COMFORTABLY. RESPIRATION EVEN, UNLABOR ON 2L NC. NO DISTRESS NOTED AT THIS TIME. CALL LIGHT WITHIN REACH
--- NOTE | 2017-11-21 15:20 | NUR ---
CM NOTE INITIAL REVIEW FAXED TO [facility] [phone] CANDACE # [phone]
[2017-11-21 16:00] VITALS: BP 148/77
--- NOTE | 2017-11-21 16:00 | NUR ---
PATIENT IS RESTING COMFORTABLY, RESPONSIVE TO TOUCH. RESPIRATION EVEN, UNLABOR ON 2L NC. VS IS STABLE. NO DISTRESS NOTED AT THIS TIME. CALL LIGHT WITHIN REACH
--- NOTE | 2017-11-21 18:31 | NUR ---
PATIENT IS SLEEPING COMFORTABLY, RESPONSIVE TO TOUCH. RESPIRATION EVEN, UNLABOR ON 2L NC. NO DISTRESS NOTED AT THIS TIME. CALL LIGHT WITHIN REACH
--- NOTE | 2017-11-21 19:10 | NUR ---
RECEIVED REPORT FROM DAY SHIFT NURSE PHILIP-RN AT BEDSIDE. PT RESTING IN BED WITH FAMILY AT BEDSIDE. AOX4-DROWSY, ON 2L/NC WITH IV RIGHT FA 22G. DISCUSSED PLAN OF CARE AND PT VERBALIZED UNDERSTANDING. REINFORCEMENT NEEDED. BED IN LOWEST POSITION, BED BREAKS ON, BOTH SIDE RAILS UP AND BED ALARM ON FOR SAFETY. BED SIDE TABLE AND CALL LIGHT ARE WITHIN REACH. WILL CONTINUE TO MONITOR.
[2017-11-21 20:00] VITALS: BP 155/77
--- NOTE | 2017-11-21 20:00 | NUR ---
BLOOD GLUCOSE 262-WILL ADMINISTER INSULIN. VITAL SIGNS TAKEN AND TOLERATED WELL. BP ELEVATED. NO S/S OF RESPIRATORY DISTRESS OR DISCOMFORT NOTED AT THIS TIME. WILL CONTINUE TO MONITOR.
[2017-11-21] MEDS ORDERED: INSULIN LANTUS 100 UNITS/ML 10 ML VIAL SUBQ SCH (21:00)
[2017-11-21] MEDS: QUEtiapine FUMARATE 25 MG TAB PO SCH (21:37)
[2017-11-21] MEDS: SIMVASTATIN 20 MG TAB PO SCH (21:37)
[2017-11-21] MEDS: BACLOFEN 10 MG TAB PO SCH (21:37)
--- NOTE | 2017-11-21 21:40 | NUR ---
SPOKE WITH ON-CALL DR. STAFFORD ABOUT SEROQUEL DOSAGE BEING 200MG WHEN HOME MED IS 25MG. DOSAGE WAS CHANGED TO 25MG. SCHEDULED MEDICATIONS WERE GIVEN AND TOLERATED WELL. NO S/S OF RESPIRATORY DISTRESS OR DISCOMFORT NOTED AT THIS TIME. WILL CONTINUE TO MONITOR.
[2017-11-22] VITALS: BP 122/63
--- NOTE | 2017-11-22 | NUR ---
VITAL SIGNS TAKEN BY LEATHER GRAINER NURSE EVY. PT TOLERATED WELL. NO S/S OF RESPIRATORY DISTRESS OR DISCOMFORT NOTED AT THIS TIME. WILL CONTINUE TO MONITOR.
[2017-11-22] MEDS: ALBUTEROL 0.083% 2.5 MG/3 ML NEBU INH SCH ×3 (00:52→12:09)
--- NOTE | 2017-11-22 01:00 | NUR ---
WOUND ASSESSMENT AND SCHEDULED MEDICATION HYDRAGUARD APPLIED WITH ASSISTANCE BY COMFORT FINN. PT ALSO ASSISTED TO BED SIDE COMMODE HOWEVER PT SHAKY AND NOT STURDY. 2 PERSON ASSIST NEEDED. WILL TRY BED AMOR NEXT TIME. NO S/S OF RESPIRATORY DISTRESS OR DISCOMFORT NOTED AT THIS TIME. WILL CONTINUE TO MONITOR.
[2017-11-22] MEDS: HYDRAGUARD CREAM TP SCH ×2 (01:36→15:00)
--- NOTE | 2017-11-22 02:45 | NUR ---
SCHEDULED MEDICATION GIVEN AND TOLERATED WELL. NO S/S OF RESPIRATORY DISTRESS OR DISCOMFORT NOTED AT THIS TIME. WILL CONTINUE TO MONITOR.
[2017-11-22] MEDS: AZITHROMYCIN 500 MG in DEXTROSE 5% 250 ML IV SCH ×2 (03:37→14:59)
--- NOTE | 2017-11-22 03:40 | NUR ---
SCHEDULED MEDICATION ZITHROMAX GIVEN AND TOLERATED WELL. NO S/S OF RESPIRATORY DISTRESS OR DISCOMFORT NOTED AT THIS TIME. WILL CONTINUE TO MONITOR.
[2017-11-22] MEDS: NACL 0.45% 1,000 ML IV SCH ×2 (05:30→11:10)
[2017-11-22] MEDS: BLOOD GLUCOSE MONITORING 1 DEV DEV FS SCH ×4 (06:30→21:22)
--- NOTE | 2017-11-22 06:30 | NUR ---
BLOOD GLUCOSE 164- WILL ADMINISTER INSULIN COVERAGE.
[2017-11-22] MEDS: INSULIN LISPRO SLIDING SCALE 100 UNITS/ML VIAL SUBQ PRN ×4 (06:44→21:38)
--- NOTE | 2017-11-22 06:44 | NUR ---
INSULIN COVERAGE GIVEN. PT TOLERATED WELL. NO S/S OF RESPIRATORY DISTRESS OR DISCOMFORT NOTED AT THIS TIME. WILL CONTINUE TO MONITOR.
[2017-11-22 06:52] LABS: HEMATOCRIT 26.7 % (36-48); HEMOGLOBIN 8.5 g/dL (12.0-16.0); MEAN CORPUSCULAR HEMOGLOBIN 27 pg (27-31); MEAN CORPUSCULAR HGB CONC 32 g/dL (33-37); MEAN CORPUSCULAR VOLUME 84.3 fL (80-94); PLATELET COUNT (AUTO) 443 K/uL (140-450); RED BLOOD CELL COUNT(AUTO) 3.17 MIL/uL (4.20-5.40); RED CELL DISTRIBUTION WIDTH 15.6 % (11.6-13.7); WHITE BLOOD COUNT (AUTO) 15.7 K/uL (4.8-10.8)
--- NOTE | 2017-11-22 07:05 | NUR ---
RECEIVED PT REPORT AT BEDSIDE. PT AWAKE AND ALERT. PT ON 2L O2. PT COMPLAINS OF SOB. RT PAGED. ASSISTED PT TO SIT ON THE SIDE OF THE BED. FALL PRECAUTIONS IN PLACE. WILL CONTINUE TO MONITOR.
--- NOTE | 2017-11-22 07:24 | NUR ---
ENDORSED PT CARE TO DAY SHIFT NURSE NIRAV FOR CONTINUITY OF CARE.
[2017-11-22 08:00] VITALS: BP 131/58
[2017-11-22 08:04] LABS: ALBUMIN 2.2 g/dL (3.4-5.0); ANION GAP 10.2 (8-16); CARBON DIOXIDE 26.8 mmol/L (21-32); CREATININE 2.5 mg/dL (0.6-1.3); TOTAL BILIRUBIN 0.3 mg/dL (0.0-1.0)
[2017-11-22 08:05] LABS: LYMPHOCYTES % (MANUAL) 25 % (20-46); MONOCYTES % (MANUAL) 4 % (5-12)
[2017-11-22] MEDS: FENOFIBRATE 48 MG TAB PO SCH (08:39)
[2017-11-22] MEDS: amLODIPine 5 MG TAB PO SCH (08:41)
[2017-11-22] MEDS: ASPIRIN 81 MG TAB.CHEW PO SCH (08:42)
[2017-11-22] MEDS: METOPROLOL 50 MG TAB PO SCH ×2 (08:42→21:36)
[2017-11-22] MEDS: LORATADINE 10 MG TAB PO SCH (08:43)
[2017-11-22] MEDS: LABETALOL 100 MG TAB PO SCH ×2 (08:43→21:35)
[2017-11-22] MEDS: METHOCARBAMOL 500 MG TAB PO SCH ×2 (08:43→21:35)
[2017-11-22] MEDS: ALPRAZolam 0.5 MG TAB PO SCH ×2 (08:43→18:42)
[2017-11-22] MEDS: methylPREDNISolone SS 40 MG/ML VIAL IVP SCH (08:44)
[2017-11-22] MEDS: ENOXAPARIN 30 MG/0.3 ML SYR SUBQ SCH (08:44)
[2017-11-22] MEDS: INSULIN LANTUS 100 UNITS/ML 10 ML VIAL SUBQ SCH (08:56)
--- NOTE | 2017-11-22 10:26 | NUR ---
ASSISTED PATIENT TO THE BEDSIDE COMMODE. PATIENT VOIDED AND HAD A BM
--- NOTE | 2017-11-22 11:00 | NUR ---
STOOL SAMPLE FOR OCCULT BLOOD COLLECTED AND SENT TO LAB.
[2017-11-22 11:03] VITALS: BP 146/69
--- NOTE | 2017-11-22 12:10 | NUR ---
SPOKE WITH DR ACUÑA ON THE PHONE AND INFORMED HER ABOUT PATIENT'S COMPLAINTS OF SOB AND NOTIFIED HER ABOUT RT'S RECOMMENDATIONS FOR BREATHING TX. ORDERS RECEIVED
[2017-11-22] MEDS ORDERED: ALBUTEROL SULFATE/IPRATROPIU 3 ML SOL IH PRN ×2 (12:30)
[2017-11-22] MEDS ORDERED: ALBUTEROL 0.083% 2.5 MG/3 ML NEBU INH PRN ×2 (12:30→12:40)
--- NOTE | 2017-11-22 12:37 | NUR ---
PATIENT BACK IN BED, ON 2L O2. PT REPORTS FEELING BETTER. NO S/S OF DISTRESS NOTED. FALL PRECAUTIONS IN PLACE. WILL CONTINUE TO MONITOR
--- NOTE | 2017-11-22 13:14 | NUR ---
PT SEEN BY DR ACUÑA.
--- NOTE | 2017-11-22 15:15 | NUR ---
CM NOTE CONCURRENT REVIEW FAXED TO [facility] [phone] CANDACE # [phone]
[2017-11-22 16:00] VITALS: BP 111/47
--- NOTE | 2017-11-22 19:10 | NUR ---
PT REPORT GIVEN AT BEDSIDE. PT ENDORSED IN STABLE CONDITION. PT SITTING UP IN CHAIR WITH FAMILY MEMBERS NEARBY.
--- NOTE | 2017-11-22 19:11 | NUR ---
RECEIVED REPORT FROM DAY SHIFT NURSE SANCHEZ-RN AT BEDSIDE. PT RESTING IN BED WITH FAMILY AT BEDSIDE. AOX4-DROWSY, ON 2L/NC WITH IV RIGHT FA 22G. DISCUSSED PLAN OF CARE AND PT VERBALIZED UNDERSTANDING. REINFORCEMENT NEEDED. BED IN LOWEST POSITION, BED BREAKS ON, BOTH SIDE RAILS UP AND BED ALARM ON FOR SAFETY. BED SIDE TABLE AND CALL LIGHT ARE WITHIN REACH. WILL CONTINUE TO MONITOR.
[2017-11-22 20:00] VITALS: BP 142/58
--- NOTE | 2017-11-22 20:00 | NUR ---
Manager [place] Notes: I met with Patient, Reagan Franklin, daughter In-law and son at bedside. Per Patient's he wanted to talk to me about some medications, and care concerns. I explained to Patient and her My role as a medical planner and also explained to them and the family my limitations and scope of practice. I informed them all that I understood their concerns and that I will contact and informed the sales warehouse driver with a request to meet with them to further more discuss and address their concern. I took Patient's 's contact information as well Reagan Franklin . I also made sales warehouse driver eli aware of Patient and family request.
--- NOTE | 2017-11-22 20:00 | NUR ---
VITAL SIGNS TAKEN AND TOLERATED WELL. INCREASED BP NOTED. NO S/S OF RESPIRATORY DISTRESS OR DISCOMFORT NOTED AT THIS TIME. WILL CONTINUE TO MONITOR.
[2017-11-22] MEDS: ALBUTEROL SULFATE/IPRATROPIU 3 ML SOL IH SCH ×2 (20:13→23:49)
[2017-11-22] MEDS ORDERED: PIPER/TAZO 2.25GM/D5W PREMIX 50 ML IV SCH (21:00)
--- NOTE | 2017-11-22 21:00 | NUR ---
BLOOD GLUCOSE 270- INSULIN COVERAGE NEEDED.
[2017-11-22] MEDS: BACLOFEN 10 MG TAB PO SCH (21:34)
[2017-11-22] MEDS: SIMVASTATIN 20 MG TAB PO SCH (21:35)
[2017-11-22] MEDS: QUEtiapine FUMARATE 25 MG TAB PO SCH (21:35)
--- NOTE | 2017-11-22 21:40 | NUR ---
SCHEDULED MEDICATION GIVEN. INSULIN COVERAGE GIVEN. PT TOLERATED WELL. NO S/S OF RESPIRATORY DISTRESS OR DISCOMFORT NOTED AT THIS TIME. WILL CONTINUE TO MONITOR.
--- NOTE | 2017-11-22 22:04 | NUR ---
2200 PLACED PT ON CPAP OF 5CM. SIZE MED MASK. PT TOLERATES CPAP AT THIS TIME
[2017-11-22 22:05] LABS: ANION GAP 16.8 (8-16); CARBON DIOXIDE 24.3 mmol/L (21-32); CREATININE 2.5 mg/dL (0.6-1.3); POTASSIUM 4.1 mmol/L (3.5-5.1)
--- NOTE | 2017-11-22 22:40 | NUR ---
PT WANTED TO TAKE CPAP MACHINE OFF STATING "I CAN'T BREATHE." PT BACK ON 2L/NC AND TOLERATING WELL. CALLED RT JESSI AND MADE HER AWARE. CPAP MACHINE ON STANDBY.
--- NOTE | 2017-11-22 22:41 | NUR ---
PATIENT WANTED CPAP MASK OFF. PT PLACED BACK ON 2LNC
--- NOTE | 2017-11-22 23:00 | NUR ---
PT RESTING IN BED. NO S/S OF RESPIRATORY DISTRESS OR DISCOMFORT NOTED AT THIS TIME. WILL CONTINUE TO MONITOR.
[2017-11-23] VITALS: BP 144/68
--- NOTE | 2017-11-23 | NUR ---
VITAL SIGNS TAKEN AND TOLERATED WELL. NO S/S OF RESPIRATORY DISTRESS OR DISCOMFORT NOTED AT THIS TIME. WILL CONTINUE TO MONITOR.
[2017-11-23] MEDS: HYDRAGUARD CREAM TP SCH ×2 (01:07→13:00)
[2017-11-23] MEDS: LORazepam 0.5 MG TAB PO PRN ×2 (01:45→16:15)
--- NOTE | 2017-11-23 01:45 | NUR ---
PT C/O ANXIETY. CALLED DR. DAYA HOGUE FOR DR. ACUÑA. ORDERED ATIVAN 0.5MG PO Q6H FOR ANXIOUSNESS. MEDICATION WAS GIVEN TO PT AND PT TOLERATED WELL. NO S/S OF RESPIRATORY DISTRESS OR DISCOMFORT NOTED AT THIS TIME. WILL CONTINUE TO MONITOR.
--- NOTE | 2017-11-23 02:30 | NUR ---
PT SLEEPING IN BED. NO S/S OF RESPIRATORY DISTRESS OR DISCOMFORT NOTED AT THIS TIME. WILL CONTINUE TO MONITOR.
--- NOTE | 2017-11-23 04:30 | NUR ---
PT RESTING IN BED. NO S/S OF RESPIRATORY DISTRESS OR DISCOMFORT NOTED AT THIS TIME. WILL CONTINUE TO MONITOR.
--- NOTE | 2017-11-23 06:00 | NUR ---
BLOOD GLUCOSE 196- WILL ADMINISTER INSULIN COVERAGE.
[2017-11-23] MEDS: BLOOD GLUCOSE MONITORING 1 DEV DEV FS SCH ×4 (06:22→21:00)
[2017-11-23] MEDS: INSULIN LISPRO SLIDING SCALE 100 UNITS/ML VIAL SUBQ PRN ×4 (06:24→22:41)
--- NOTE | 2017-11-23 06:24 | NUR ---
INSULIN COVERAGE GIVEN. PT TOLERATED WELL. NO S/S OF RESPIRATORY DISTRESS OR DISCOMFORT NOTED AT THIS TIME. WILL CONTINUE TO MONITOR.
--- NOTE | 2017-11-23 07:10 | NUR ---
PT REPORT RECEIVED AT BEDSIDE. PT IS RESTING IN BED, ALERT AND ORIENTED. NO S/S OF DISTRESS. PT IS ON 2L O2 VIA NC. BED IN LOW POSITION, CALL LIGHT WITHIN REACH. WILL CONTINUE TO MONITOR.
--- NOTE | 2017-11-23 07:19 | NUR ---
ENDORSED PT CARE TO DAY SHIFT NURSE NIRAV FOR CONTINUITY OF CARE.
[2017-11-23] MEDS: ALBUTEROL SULFATE/IPRATROPIU 3 ML SOL IH SCH ×3 (07:22→19:00)
[2017-11-23 07:59] VITALS: BP 152/58
[2017-11-23] MEDS: FENOFIBRATE 48 MG TAB PO SCH (09:23)
[2017-11-23] MEDS: LABETALOL 100 MG TAB PO SCH ×2 (09:24→21:33)
[2017-11-23] MEDS: ALPRAZolam 0.5 MG TAB PO SCH ×2 (09:24→21:33)
[2017-11-23] MEDS: ASPIRIN 81 MG TAB.CHEW PO SCH (09:25)
[2017-11-23] MEDS: LORATADINE 10 MG TAB PO SCH (09:25)
[2017-11-23] MEDS: METOPROLOL 50 MG TAB PO SCH ×2 (09:25→21:32)
[2017-11-23] MEDS: amLODIPine 5 MG TAB PO SCH (09:26)
[2017-11-23] MEDS: METHOCARBAMOL 500 MG TAB PO SCH ×2 (09:26→21:32)
[2017-11-23] MEDS: methylPREDNISolone SS 40 MG/ML VIAL IVP SCH (09:26)
[2017-11-23] MEDS: ENOXAPARIN 30 MG/0.3 ML SYR SUBQ SCH (09:29)
[2017-11-23] MEDS: INSULIN LANTUS 100 UNITS/ML 10 ML VIAL SUBQ SCH (09:31)
[2017-11-23] MEDS: AZITHROMYCIN 500 MG in DEXTROSE 5% 250 ML IV SCH (13:11)
--- NOTE | 2017-11-23 13:43 | NUR ---
DECREASED FI02 TO 1LPM NC RN AWARE
--- NOTE | 2017-11-23 14:30 | NUR ---
PT SEEN BY DR ACUÑA, DR ACUÑA ORDERED PT TO BE PLACED ON 1L NC. O2 SAT 91%. WILL CONTINUE TO MONITOR.
[2017-11-23] MEDS ORDERED: PANTOPRAZOLE 40 MG INJ VIAL IVP SCH (15:00)
--- NOTE | 2017-11-23 15:19 | NUR ---
CHECKED ON PT WITH 1LPM NC SPO2 .87 .88 PUT PT BACK ON 2LPM NC RN AWARE
[2017-11-23 16:00] VITALS: BP 161/73
--- NOTE | 2017-11-23 17:45 | NUR ---
PT SEEN BY DR REBOLLAR. PERFORMED RECTAL EXAM. PER DOCTOR, NO FURTHER INTERVENTIONS REGARDING GI REQUIRED AT THIS TIME. NO NEW ORDERS.
--- NOTE | 2017-11-23 18:33 | NUR ---
ASSISTED PT TO COMMODE. PT VOIDED, 450 ML URINE OUTPUT NOTED.
--- NOTE | 2017-11-23 19:15 | NUR ---
RECIEVED ENDORSEMENT FORM DAYSHIFT NURSE AT BEDSIDE FOR CONTINUITY OF CARE, PT IN STABLE CONDITION.
--- NOTE | 2017-11-23 19:15 | NUR ---
PT REPORT GIVEN AT BEDSIDE. PT ENDORSED IN STABLE CONDITION. NO S/S OF DISTRESS. BED IN LOW POSITION AND CALL LIGHT WITHIN REACH.
--- NOTE | 2017-11-23 19:39 | NUR ---
PT REFUSED HHNTX , I TOLD HER TO CALL IF NEEDED.LUCIUS CALVIN NOTIFIED
[2017-11-23 20:00] VITALS: BP 158/64
--- NOTE | 2017-11-23 20:30 | NUR ---
PT SITTING UP IN BED NO S/S OF PAIN OR DISTRESS NOTED. PT V/S FOLLOWS T 98.1 P 71 R 20 B/P 158/64 02 93% WITH 2L VIA N/C. PT REQUESTED ASSISTANCE WITH PHONE AND TV WHICH WAS PROVIDED. PT HAS ALL FALLS PRECAUTIONS IN PLACE. F/S 249 COVERAGE PROVIDED. ALL ORDERED MEDS GIVEN. CALL CARSON IN REACH.
[2017-11-23] MEDS: QUEtiapine FUMARATE 25 MG TAB PO SCH (21:32)
[2017-11-23] MEDS: SIMVASTATIN 20 MG TAB PO SCH (21:33)
[2017-11-23] MEDS: BACLOFEN 10 MG TAB PO SCH (21:34)
--- NOTE | 2017-11-23 22:00 | NUR ---
PT SITTING IN BED RESTING, LUNG SOUNDS DIMINISHED, BUT NO S/S OF RESPIRATORY DISTRESS. PT CONTINUES TO DECLINE THE RESPIRATORY TREATMENT BUT SHE SAID THAT SHE WILL PRACTICE WITH THE INCENTIVE SPIROMETER. PT CONTINUES ON 2 L VIA N/C. PT REMINDED THAT IF SHE FEELS SHE NEEDS TREATMENT TO LET PRIMARY NURSE KNOW SO THAT RESPIRATORY CAN BE CALLED. PT VERBALIZED UNDERSTANDING.
--- NOTE | 2017-11-23 23:00 | NUR ---
PT SLEEPING WITH NO S/S OF PAIN OR DISTRESS NOTED. BED LOW CALL CARSON IN REACH AND ALL FALLLS PRECAUTIONS IN PLACE.
--- NOTE | 2017-11-24 00:05 | NUR ---
PT ASSISTED TO BEDSIDE COMMODE, SHE VOIDED 750MLS OF YELLOW URINE. PT ASSISTED BACK TO BED AND APPEARED TO BE SOB. PT AGREED TO HAVE RESPIRATORY COME AND RECEIVE TREATMENT. RESPIRATORY NOTIFIED.
[2017-11-24] MEDS: HYDRAGUARD CREAM TP SCH ×2 (01:00→13:00)
--- NOTE | 2017-11-24 03:30 | NUR ---
pt sleeping soundly no s/s of pain or distress noted all falls precautions in place.
[2017-11-24] MEDS: ALBUTEROL SULFATE/IPRATROPIU 3 ML SOL IH SCH ×4 (05:34→19:04)
[2017-11-24] MEDS: BLOOD GLUCOSE MONITORING 1 DEV DEV FS SCH ×4 (06:42→21:02)
--- NOTE | 2017-11-24 07:43 | NUR ---
RECEIVED REPORT FROM PM NURSE AT BEDSIDE. PT LYING ON HER BED. ALL SAFETY MEASURE IN PLACE. CALL LIGHT WITHIN PT REACH. PT ON 2LPM NC , ON O2 SUPPLEMENT. UPDATED BOARD AND INTRODUCED SELF. WILL CONTINUE TO MONITOR PT.
--- NOTE | 2017-11-24 07:43 | NUR ---
endorsed care to lili griffith.
[2017-11-24 07:47] LABS: BASOPHILS # (AUTO) 0.1 K/uL (0.00-0.22); BASOPHILS % (AUTO) 0.6 % (0.0-2.0); EOSINOPHILS # (AUTO) 0.1 K/uL (0-0.4); EOSINOPHILS % (AUTO) 1.1 % (0.0-4.0); HEMATOCRIT 30.8 % (36-48); HEMOGLOBIN 9.9 g/dL (12.0-16.0); LYMPHOCYTES # (AUTO) 2.6 K/uL (2.5-16.5); LYMPHOCYTES % (AUTO) 18.5 % (20.5-51.1); MEAN CORPUSCULAR HEMOGLOBIN 27 pg (27-31); MEAN CORPUSCULAR HGB CONC 32 g/dL (33-37); MEAN CORPUSCULAR VOLUME 83.9 fL (80-94); MONOCYTES # (AUTO) 0.8 K/uL (0.8-1.0); MONOCYTES % (AUTO) 5.6 % (1.7-9.3); NEUTROPHILS # (AUTO) 10.3 K/uL (1.8-7.7); NEUTROPHILS % (AUTO) 74.2 % (42.2-75.2); PLATELET COUNT (AUTO) 491 K/uL (140-450); RED BLOOD CELL COUNT(AUTO) 3.68 MIL/uL (4.20-5.40); RED CELL DISTRIBUTION WIDTH 15.9 % (11.6-13.7); WHITE BLOOD COUNT (AUTO) 13.9 K/uL (4.8-10.8)
[2017-11-24 08:00] VITALS: BP 134/64
[2017-11-24 08:07] LABS: ALBUMIN 2.6 g/dL (3.4-5.0); ANION GAP 12.7 (8-16); CARBON DIOXIDE 26.9 mmol/L (21-32); POTASSIUM 3.6 mmol/L (3.5-5.1); TOTAL BILIRUBIN 0.2 mg/dL (0.0-1.0)
[2017-11-24] MEDS: LORATADINE 10 MG TAB PO SCH (09:00)
[2017-11-24] MEDS: METHOCARBAMOL 500 MG TAB PO SCH ×2 (09:00→20:46)
[2017-11-24] MEDS: FENOFIBRATE 48 MG TAB PO SCH (09:00)
[2017-11-24] MEDS: LABETALOL 100 MG TAB PO SCH ×2 (09:00→20:46)
[2017-11-24] MEDS: ALPRAZolam 0.5 MG TAB PO SCH ×2 (09:00→20:47)
[2017-11-24] MEDS: PANTOPRAZOLE 40 MG INJ VIAL IVP SCH (09:23)
[2017-11-24] MEDS: METOPROLOL 50 MG TAB PO SCH ×2 (09:25→20:45)
[2017-11-24] MEDS: amLODIPine 5 MG TAB PO SCH (09:25)
[2017-11-24 10:20] LABS: PHOSPHORUS 4.6 mg/dL (2.5-4.9)
[2017-11-24] MEDS: INSULIN LANTUS 100 UNITS/ML 10 ML VIAL SUBQ SCH (10:36)
--- NOTE | 2017-11-24 10:57 | NUR ---
CHECKED ON PT. SLEEPING , NO SIGN OF DISTRESS. ALL SAFETY MEASURE IN PLACE. WILL CONTINUE TO MONITOR PT.
--- NOTE | 2017-11-24 12:00 | NUR ---
CHECKED ON PT. ASSISTED TO HER BEDSIDE COMMODE. ADMINISTERED INSULIN PROTOCOL. PT WANTED TO SIT ON CHAIR. STUDENT AT THE BEDSIDE FOR ASSIST.NO SIGN OF DISTRESS. ASKED PT TO USE CALL LIGHT WHEN SHE WANTS TO GO BACK TO BED. VERBALIZED UNDERSTANDING. WILL CONTINUE TO MONITOR PT.
[2017-11-24] MEDS: INSULIN LISPRO SLIDING SCALE 100 UNITS/ML VIAL SUBQ PRN ×3 (12:37→21:10)
--- NOTE | 2017-11-24 14:00 | NUR ---
DR. ACUÑA AT THE BEDSIDE. ASKED TO WEAN OFF THE PT FROM OXYGEN SUPPLY. TOLERATING WELL. CHECKED ON PT O2 SAT, 94% ON ROOM AIR. NO SIGN OF DISTRESS. WILL CONTINUE TO MONITOR PT.
[2017-11-24] MEDS: AZITHROMYCIN 500 MG in DEXTROSE 5% 250 ML IV SCH (14:29)
[2017-11-24 16:00] VITALS: BP 130/62
--- NOTE | 2017-11-24 16:00 | NUR ---
CHECKED ON PT. IV SITE INFILTRATED. STARTED NEW IV LINE . ABX INFUSING WELL ON PT. NO SIGN OF DISTRESS. CHECKED BS, 246 AT THIS TIME. WILL MEDICATE WITH INSULIN SLIDING SCALE. WILL CONTINUE TO MONITOR PT.
--- NOTE | 2017-11-24 17:30 | NUR ---
FAMILY AT THE BEDSIDE. HELPING PT TO BE ON BEDSIDE COMMODE. UPDATED FAMILY ON THE PT CONDITION. PT ON ROOM AIR. INSTRUCTED HER US THE IS. USING IT. FAMILY HELPING WITH IS USE. PT ON HER BED. TOLERATING ON ROOM AIR. NO SIGN OF DISTRESS. WILL CONTINUE TO MONITOR PT.
--- NOTE | 2017-11-24 19:10 | NUR ---
ENDORSED PT TO PM NURSE. PT IN STABLE CONDITION.
--- NOTE | 2017-11-24 19:10 | NUR ---
RECEIVED ENDORSEMENT FORM MARICRUZ RN DAYSHIFT NURSE FOR CONTINUITY OF CARE, PT IN STABLE CONDITION.
[2017-11-24 20:00] VITALS: BP 150/67
[2017-11-24] MEDS: BACLOFEN 10 MG TAB PO SCH (20:45)
[2017-11-24] MEDS: QUEtiapine FUMARATE 25 MG TAB PO SCH (20:46)
[2017-11-24] MEDS: SIMVASTATIN 20 MG TAB PO SCH (20:47)
--- NOTE | 2017-11-24 21:00 | NUR ---
PT IN LOW BED WITH SIDE RAILS UP X2 AND ALL OTHER FALLS PRECAUTIONS IN PLACE. IV SITE R F/A FLUSHED PATENT N/S RUNNING AT 10MLS/HR. V/S FOLLOWS T 97.5 P 62 R 20 B/P 150/67 02 92 WITH ROOM AIR PT GIVEN ALL MEDS THAT WERE DUE AT THIS TIME. FAMILY AT BEDSIDE REQUESTING LAB UP DATES ON PT. DAUGHTER ASSISTED MOTHER WITH EVENING CARE BEFORE LEAVING.
[2017-11-25] MEDS: ALBUTEROL SULFATE/IPRATROPIU 3 ML SOL IH SCH ×3 (01:00→13:52)
[2017-11-25] MEDS: HYDRAGUARD CREAM TP SCH ×2 (01:00→12:24)
--- NOTE | 2017-11-25 01:10 | NUR ---
PATIENT REFUSED HHN TX BECAUSE SHE SAID PLEASE NO TREATMENT TONIGHT THAT SHE WANTS TO SLEEP. PATIENT CONFIRMED COMFORTABLE WITH NO RESPIRATORY DISTRESS.
--- NOTE | 2017-11-25 01:37 | NUR ---
PATIENT INITIALLY REFUSED THE HHN TX THEN CALLED FOR TREATMENT SHORTLY AFTER. HHN TX GIVEN WITH NO ADVERSE EFFECTS.
--- NOTE | 2017-11-25 02:00 | NUR ---
PT IN BED SLEEPING SOUNDLY ALL FALLS PRECAUTIONS IN PLACE,
--- NOTE | 2017-11-25 05:26 | NUR ---
VENT CHECK AND PATIENT ASSESSMENT. PATIENT AWAKE AND QUIET. SUCTIONED PATIENT AND RECEIVED MODERATE, PALE YELLOW, THIN SECRETIONS. CHANGED HME AND TRACH GAUZE/DRESSING. STOMA AREA IS HEALTHY AND INTACT.
--- NOTE | 2017-11-25 06:00 | NUR ---
PT F/S 201 SHE WAS GIVEN 4 UNITS OF COVERAGE. NO C/O VOICED,
[2017-11-25] MEDS: INSULIN LISPRO SLIDING SCALE 100 UNITS/ML VIAL SUBQ PRN ×2 (06:33→12:23)
--- NOTE | 2017-11-25 07:15 | NUR ---
[employer] V60 BIPAP #[id number] AT BEDSIDE
--- NOTE | 2017-11-25 07:25 | NUR ---
RECEIVED REPORT FROM THE GREEN BUILDING ENERGY ENGINEER NURSE AT BEDSIDE FOR CONTINUITY OF CARE. PT IS AWAKE AND ORIENTED. INTRODUCED MYSELF AND UPDATED THE BOARD. PT ON ROOM AIR. NO SIGNS OF DISTRESS. V/S: BP 180/70, AFEBRILE, RESP 20, AND 92% ON ROOM AIR. PT DENIES PAIN AT THIS TIME. SKIN- PSORIASIS ON HER LOWER BACK. LBM 11/24. IV ON R FA 24G TKO. PT REQUESTED ASSISTANCE TO THE BSC. NEED 2 MAN ASSIST. ASSISTED BACK INTO BED. WILL CONTINUE TO MONITOR PT. EMPTIED 250ML URINE FROM CIVIL SERVICE WORKER.
[2017-11-25] MEDS: BLOOD GLUCOSE MONITORING 1 DEV DEV FS SCH ×2 (07:30→12:20)
[2017-11-25 08:00] VITALS: BP 180/70
[2017-11-25] MEDS: ALPRAZolam 0.5 MG TAB PO SCH (08:40)
[2017-11-25] MEDS: LORATADINE 10 MG TAB PO SCH (08:41)
[2017-11-25] MEDS: METHOCARBAMOL 500 MG TAB PO SCH (08:41)
[2017-11-25] MEDS: amLODIPine 5 MG TAB PO SCH (08:41)
[2017-11-25] MEDS: METOPROLOL 50 MG TAB PO SCH (08:42)
[2017-11-25] MEDS: LABETALOL 100 MG TAB PO SCH (08:42)
[2017-11-25] MEDS: FENOFIBRATE 48 MG TAB PO SCH (08:42)
[2017-11-25] MEDS: PANTOPRAZOLE 40 MG INJ VIAL IVP SCH (08:43)
[2017-11-25] MEDS: INSULIN LANTUS 100 UNITS/ML 10 ML VIAL SUBQ SCH (08:48)
--- NOTE | 2017-11-25 08:51 | NUR ---
ADMINISTERED MORNING MEDS ORDERED. PT TOLERATED WELL. PT FINISHING UP BREAKFAST. WILL CONTINUE TO MONITOR PT.
[2017-11-25 09:11] LABS: BASOPHILS # (AUTO) 0.1 K/uL (0.00-0.22); BASOPHILS % (AUTO) 1.2 % (0.0-2.0); EOSINOPHILS # (AUTO) 0.2 K/uL (0-0.4); HEMATOCRIT 28.4 % (36-48); HEMOGLOBIN 9.6 g/dL (12.0-16.0); LYMPHOCYTES # (AUTO) 1.9 K/uL (2.5-16.5); LYMPHOCYTES % (AUTO) 17.8 % (20.5-51.1); MEAN CORPUSCULAR HEMOGLOBIN 28 pg (27-31); MEAN CORPUSCULAR HGB CONC 34 g/dL (33-37); MEAN CORPUSCULAR VOLUME 83.4 fL (80-94); MONOCYTES # (AUTO) 0.6 K/uL (0.8-1.0); MONOCYTES % (AUTO) 5.7 % (1.7-9.3); NEUTROPHILS # (AUTO) 7.9 K/uL (1.8-7.7); NEUTROPHILS % (AUTO) 73.3 % (42.2-75.2); PLATELET COUNT (AUTO) 353 K/uL (140-450); RED BLOOD CELL COUNT(AUTO) 3.41 MIL/uL (4.20-5.40); RED CELL DISTRIBUTION WIDTH 15.7 % (11.6-13.7); WHITE BLOOD COUNT (AUTO) 10.7 K/uL (4.8-10.8)
[2017-11-25 09:38] LABS: ALBUMIN 2.3 g/dL (3.4-5.0); ANION GAP 10.8 (8-16); CARBON DIOXIDE 27.5 mmol/L (21-32); CREATININE 1.9 mg/dL (0.6-1.3); POTASSIUM 3.3 mmol/L (3.5-5.1); TOTAL BILIRUBIN 0.2 mg/dL (0.0-1.0)
--- NOTE | 2017-11-25 10:50 | NUR ---
PER CM, REQUESTED O2 SATURATION. IN BED, SUPINE 92%, SITTING ON SIDE OF BED 94%. FOR W/ AMBULATION, P/T WILL BE BY LATER TO ASSESS. PAGED P/T.
[2017-11-25] MEDS ORDERED: POTASSIUM CHLORIDE 10 MEQ TABER PO SCH (12:00)
--- NOTE | 2017-11-25 12:19 | NUR ---
CM NOTE SPOKE WITH [facility] CANDACE # [phone] AND GAVE HER A VERBAL CLINICAL UPDATE AND FAXED ORDER FOR HOME HEALTH AND OXYGEN TO [facility] [phone]. ADAM BUTT. Addendum: 11/25/17 at 1226 by Shaila Jhaveri CM PT NOTES ALSO FAXED TO [facility]
--- NOTE | 2017-11-25 13:12 | NUR ---
11/25/17 RD INITIAL ASSESSMENT COMPLETED PLEASE REFER TO NUTRITION ASSESSMENT UNDER CARE ACTIVITY FOR ESTIMATED NUTRITIONAL NEEDS. *CONTINUED 1. CONTINUE CCHO 60 DIET TOLERATED. 2. RECOMMEND NA 2 GM DIET TOLERATED. 3. RECOMMEND GLUCERNA BID. 3. RD TO FOLLOW-UP 5-7 DAYS,LOW RISK. FERNANDO TRINID[address] RD
--- NOTE | 2017-11-25 15:15 | NUR ---
Residential Appraiser Note: I called and spoke with patient's daughter Roxana Erwin , I informed her about MD's request for home health services for physical therapy for patient, she verbalized understanding. I confirmed with Roxana patient's home address listed on face sheet, [address] [address]. I explained to her [facility] will be coming her or patient to schedule home visits and offered to provide her with [employer]'s phone number, she stated she did not need it and would wait for [employer] to contact her or patient. I faxed inquiry to a [facility] ([facility] is contracted with [facility]), phone number , fax number . Per Mary from [facility], they will send a nurse to patient's home tomorrow 11/26/17. Addendum: 11/25/17 at 1656 by Radha Hernández SS I called and spoke with Darien from [facility] ([facility] is contracted with [facility]), phone number and requested for referral to be cancel.
--- NOTE | 2017-11-25 15:33 | NUR ---
Director Hris Note: Per case investigator Shaila, patient does not meet criteria for home O2, patient's nurse Jessica made aware.
[2017-11-25 16:00] VITALS: BP 148/61
--- NOTE | 2017-11-25 16:13 | NUR ---
4912 MET WITH PT AND DAUGHTER JOSEPH AT BEDSIDE AND DISCUSSED DISCHARGE. PER JOSEPH PT HAS BEEN ON SERVICE WITH [facility] AND THEY WOULD LIKE TO HAVE THEIR SERVICE AGAIN. ZAC MORRISON [phone] AND JOSEPH VERIFIED THAT PT WILL BE GOING TO [address]ESS [address] IN [place]. PT HAS FWW, W/C AND A CANE AT HOME. STATED THAT PT ALSO HAS A WALKING SHOE SHE DOES HAVE A FX ANKLE. JOSEPH STATED THAT PT IS ABLE TO STAND ON "HER GOOD LEG AND PIVOT". PT STATED THAT HER PCP IS DR MARTINEZ BUT SHE IS CURRENTLY LOOKING FOR A NEW PCP THEY ARE NOT HAPPY WITH THE PCP. SUGGESTED THAT THEY CONTACT CUSTOMER SERVICE FOR [facility] FOR LISTING OF [facility] PCP'S.
--- NOTE | 2017-11-25 16:31 | NUR ---
Casino Slot Supervisor Note: I called and spoke with Nettie from [facility] , per Nettie, they have a contract with [facility], she stated she is unsure if they serve patients who live in [place], [place], she reported she will check and call me back. I provided her with my contact information.
[2017-11-25] MEDS ORDERED: LEVO250T71 PO (16:50)
--- NOTE | 2017-11-25 16:52 | NUR ---
Project Manager Note: I received a call from Nettie at [facility] , per Nettie, they serve patients who live in [place], [place]. She stated they will send a nurse to patient's home and will contact Radiation Control Worker Eve from [facility]. Addendum: 11/25/17 at 1655 by Radha Hernández SS [facility]'s phone number
--- NOTE | 2017-11-25 17:00 | NUR ---
D/C INSTRUCTIONS GIVEN. PT AND FAMILY VERBALIZED UNDERSTANDING. REMOVED IV, CANNULA INTACT. NO BLEEDING NOTED. REMOVED ID BANDS. PT WILL GET DRESSED AND WILL LET US KNOW WHEN SHE IS READY TO GO. WHEEL CHAIR READY.
--- NOTE | 2017-11-25 17:05 | NUR ---
PT WHEELED OUT BY RN STUDENT TO THE CAR. PT IS ACCOMPANIED BY FAMILY AND ALL PERSONAL BELONGINGS WITH PT. NO SIGNS OF DISTRESS. PT IN STABLE CONDITION.
== END 2017-11-25 17:05 | disposition home health service (06) | DRG 720 ==
LOC: MED 20:04 → MTU 11-20 01:17
PROVIDERS: ADMIT Hospitalist; ATTEND Hospitalist
DX: A41.9 Sepsis, unspecified organism (principal); J96.00 Acute respiratory failure, unspecified whether with hypoxia or hypercapnia; N17.9 Acute kidney failure, unspecified; J18.9 Pneumonia, unspecified organism; D64.9 Anemia, unspecified; E78.5 Hyperlipidemia, unspecified; E11.22 Type 2 diabetes mellitus with diabetic chronic kidney disease; I12.9 Hypertensive chronic kidney disease with stage 1 through stage 4 chronic kidney disease, or unspecified chronic kidney disease; J45.909 Unspecified asthma, uncomplicated; N18.9 Chronic kidney disease, unspecified; E66.01 Morbid (severe) obesity due to excess calories; M19.90 Unspecified osteoarthritis, unspecified site; E87.6 Hypokalemia; F32.9 Major depressive disorder, single episode, unspecified; F41.9 Anxiety disorder, unspecified; E87.1 Hypo-osmolality and hyponatremia; Z90.710 Acquired absence of both cervix and uterus; Z90.49 Acquired absence of other specified parts of digestive tract; Z68.39 Body mass index [BMI] 39.0-39.9, adult; Z88.8 Allergy status to other drugs, medicaments and biological substances; Z79.82 Long term (current) use of aspirin; Z79.899 Other long term (current) drug therapy; Z79.4 Long term (current) use of insulin; Z85.41 Personal history of malignant neoplasm of cervix uteri
CPT/HCPCS: 36415; 36600; 71045; 71250; 76770; 80048; 80053; 81001; 82272; 82550; 82553; 82803; 82947; 82948; 83735; 83880; 84100; 84484; 85025; 87040; 87081; 87086; 93005; 94640; 94660; 96365; 96367; 96375; 97116; 97530; 99285; C9113; J0456; J0696; J1630; J1650; J1815; J2060; J2270; J2405; J2543; J2920; J2930; J3475; J7030; J7060; J7613; J7620; J7644; Q0092